=== PATIENT | male | born 1950 | race Caucasian/White ===

== ENCOUNTER 2019-04-21 08:14 | Emergency (ER) | payer OTHER, SELFPAY ==
--- NOTE | ~2019-04-21 | XR_ITS ---
XR foot RT min 3V DATE: 04/21/2019 08:56 INDICATION: Right third toe pain and bruising TECHNIQUE: 4 views COMPARISON: None FINDINGS: There is severe osteoarthritis with very prominent hypertrophic dorsal spurring at the firs t metatarsophalangeal joint. There is mild flattening of the head of the second metatarsal bone, chronic. There is posterior calcaneal enthesopathy. No fracture, dislocation, periosteal reaction or bone destruction is detected. IMPRESSION: Severe osteoarthritis with very prominent hypertrophic dorsal spurring at first metatarso phalangeal joint Calcaneal enthesopathy Reviewed, dictated and finalized at location A. 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
[2019-04-21 08:28] VITALS: BP 164/73; PULSE 76; RESP 18; TEMP 36.7; O2SAT 92
--- NOTE | 2019-04-21 08:38 | ED.LOWEXIN ---
HPI - Extremity Injury (Lower) General Chief Complaint: Extremity Injury, Lower Stated Complaint: Right toe pain Time Seen by Provider: 04/21/19 08:39 Source: patient Mode of arrival: ambulatory Limitations: no limitations History of Present Illness HPI Narrative: Stone Contreras is a 68 yo male with a PMH of diabetes, HTN, vitamin D deficiency, who comes to express care with third right toe discoloration. He states that he remember stubbing his toe, no pain or tenderness. Discoloration around nail going down toe proximally. States he does not have neuropathy. Was seen by primary care doctor on Tuesday, his A1c is 7.9. His feet were not checked at this visit but he says that his toe was okay on Tuesday Related Data Home Medications Medication Instructions Recorded Confirmed insulin lispro [Humalog Michel 10 unit SUBCUT TID 04/21/19 04/21/19 KwikPen U-100] Allergies Allergy/AdvReac Type Severity Reaction Status Date / Time No Known Allergies Allergy Verified 04/21/19 08:37 Review of Systems Review of Systems: Narrative: CONSTITUTIONAL: Denies fever, chills, sweats. EYES: Denies visual changes, redness, discharge. ENT: Denies rhinorrhea, congestion, sore throat, otalgia. CARDIOVASCULAR: Denies chest pain, palpitations, edema. RESPIRATORY: Denies dyspnea, wheezing, cough GASTROINTESTINAL: Denies abdominal pain, nausea, vomiting, diarrhea. GENITOURINARY: Denies dysuria, hematuria, abnormal discharge SKIN: Denies rash or itching. MUSCULOSKELETAL: Denies acute back pain; discoloration of third right toe NEUROLOGIC: Denies numbness, or focal weakness. PSYCHIATRIC: Denies anxiety or depression. [facility] [place] Past Medical History Medical History Vitamin D deficiency Wears hearing aid in both ears Family History Family History Father Family history of diabetes mellitus in first degree relative Diabetes mellitus Sibling Hypertension Family history of diabetes mellitus in first degree relative Mother Family history of diabetes mellitus in first degree relative Family history of heart disease in male family member before age 55 Social History Social History Smoking end date: 03/14/06 Alcohol intake: never Gender identity (if verbalized by the patient): Male Comments At time of signature, I agree with nursing past medical, surgical, social and family history. There is no relevant family history pertinent to the presenting complaint. Exam Narrative: Exam Narrative: GENERAL: This is a well-nourished, well-developed patient, in no apparent distress. HEAD: normocephalic, atraumatic. EYES: Sclera clear/white. Vision is grossly intact. EARS: External ears normal, . Hearing grossly intact. NOSE: External nose normal with no obvious nasal discharge, nares without redness, no rhinorrhea. THROAT: Mucous membranes moist, NECK: Neck supple, non-tender CARDIOVASCULAR: Regular rate and rhythm without murmurs, gallops, or rubs. RESPIRATORY: Clear to auscultation. Breath sounds equal bilaterally. No wheezes, rales, or rhonchi. GASTROINTESTINAL: Abdomen soft, SKIN: warm, intact with no suspicious lesions or rash, good texture and turgor. NEURO: awake, alert, and oriented to person, place and time. There were no obvious focal neurologic abnormalities. Steady gait EXTREMITIES: Normal range of motion. No edema. Right third toe discoloration, positive nail moving proximally, nontender, 2+ pedal pulse, patient has bunion at base of great toe on the right foot BACK: Nontender without deformity or crepitance. . Course Course Emergency Course: X-ray negative for fracture or pathology Vital Signs Vital signs: Vital Signs Temperature 98.0 F 04/21/19 08:28 Pulse Rate 76 04/21/19 08:28 Respiratory Rate 18 04/21/19 08:28 Blood Pressure 164/73 H 04/21/19 0
== END 2019-04-21 09:39 | disposition home or self-care (01) ==
PROVIDERS: Emergency Provider Nurse Practitioner; PCP Internal Medicine
DX: S90.111A Contusion of right great toe without damage to nail, initial encounter (principal); X58.XXXA Exposure to other specified factors, initial encounter; E55.9 Vitamin D deficiency, unspecified; I10 Essential (primary) hypertension; E11.40 Type 2 diabetes mellitus with diabetic neuropathy, unspecified
CPT/HCPCS: 73630; 99213; G0463

== ENCOUNTER 2019-05-10 08:00 | Outpatient (CLI) | payer OTHER, SELFPAY ==
--- NOTE | 2019-05-13 19:13 | WPDPFTINT ---
PFT Interpretation PFT Interpretation: DOS: 05/10/2019 REQUESTING: Dr. Briggs REASON FOR TESTING: COPD PULMONARY FUNCTION TESTS Results are reproducible. Spirometry: Extremely severe reduction in FEV1, 30% predicted. 0.9 L. Moderately severe reduction in FVC, 57%. Decreased FEV1% consistent with airflow obstruction. No bronchodilator was given. Lung volumes: Mild hyperinflation, TLC 124%. Slow vital capacity is much higher than forced vital capacity consistent with dynamic airflow obstruction. Severe air trapping. Severe increase in airway resistance, Raw 705%. Diffusion: DLCO mildly reduced 63%. Flow volume loop: Severe scooping of the expiratory limb. IMPRESSION: Severe obstructive ventilatory defect, mild hyperinflation, severe air trapping with dynamic airflow obstruction. Mild diffusion impairment. No bronchodilator was given. He meets criteria for cardiopulmonary rehabilitation and handicap parking permit based on FEV1 less than 1 L. Berenice Gastelum MD
== END 2019-05-10 08:01 | disposition home or self-care (01) ==
LOC: ANHPFT 08:01
PROVIDERS: PCP Internal Medicine; Visit Provider Internal Medicine
DX: J44.9 Chronic obstructive pulmonary disease, unspecified (principal); R94.2 Abnormal results of pulmonary function studies
CPT/HCPCS: 94375; 94726; 94729

== ENCOUNTER 2019-11-13 06:53 | Outpatient (CLI) | payer OTHER, SELFPAY ==
[2019-11-13 07:47] LABS: Basophils Absolute Auto 0.1 K/mm3 (0.0-0.1); Basophils Percent Auto 0.7 % (0.2-1.2); Eosinophils Absolute Auto 0.3 K/mm3 (0-0.3); Eosinophils Percent Auto 3.7 % (0-4.4); Hemoglobin 17.2 g/dL (14.0-18.0); Immature Granulocyte Absolute 0.02 K/mm3 (0.00-0.031); Immature Granulocyte Percent A 0.2 % (0-0.5); Lymphocytes Absolute Auto 1.87 K/mm3 (0.9-3.2); Lymphocytes Percent Auto 20.4 % (18.3-44.2); Mean Corpuscular HGB Conc 33.7 g/dl (32-36); Mean Corpuscular Hemoglobin 31.2 pg (26-34); Mean Corpuscular Volume 92.4 fl (80-100); Mean Platelet Volume 9.6 fl (7.4-10.4); Monocytes Percent Auto 11.3 % (2.6-8.5); Neutrophils Absolute Auto 5.8 K/mm3 (1.3-6.7); Neutrophils Percent Auto 63.7 % (45.5-73.1); Platelet Count Result 262 k/mm3 (150-375); Red Blood Count 5.52 M/mm3 (4.6-6.20); Red Cell Distribution Width 11.7 % (11.5-14.5); White Blood Count 9.2 K/mm3 (4.5-10.0)
[2019-11-13 07:52] LABS: Add Urine Microscopic? YES; Appearance Urine Clear (Clear); Bilirubin Urine Negative (Negative); Blood Urine Negative (Negative); Color Urine Yellow (Yellow); Glucose Urine UA 3+ mg/dL (Negative); Ketones Urine Negative (Negative); Leukocyte Esterase Ur Negative LEU/UL (NEGATIVE); Mucus Urine Rare /lpf; Nitrate Urine Negative (Negative); Protein Urine 2+ mg/dL (Negative); RBC Urine 0-2 /hpf (0-2); Specific Grav Ur 1.026 (1.001-1.035); Urobilinogen Urine Negative mg/dL (<2.0); WBC Urine 0-3 /hpf (0-3)
[2019-11-13 08:10] LABS: Alanine Aminotransferase 23 U/L (4-50); Albumin Level 4.4 g/dL (3.5-5.1); Alkaline Phosphatase 83 U/L (38-126); Anion Gap 6 mmol/L (8-16); Aspartate Amino Transferase 22 U/L (17-59); Bilirubin,Total 0.4 mg/dL (0.2-1.3); Blood Urea Nitrogen 15 mg/dL (9-20); Carbon Dioxide 33 mmol/L (22-30); Chloride 100 mmol/L (98-107); Cholesterol 121 mg/dL (0-200); Estimated Glomerular Filt Rate > 60; Glucose 135 mg/dL (75-110); HDL Direct 44 mg/dL; Potassium 4.4 mmol/L (3.4-5.0); Sodium 139 mmol/L (137-145); Triglycerides 107 mg/dL (<150)
[2019-11-13 08:21] LABS: LDL Cholesterol Direct 56 mg/dL
[2019-11-13 08:41] LABS: Prostate Specific Antigen 1.5 ng/mL (< OR = 4.0)
[2019-11-13 09:09] LABS: Hemoglobin A1C 6.3 % (<5.7)
[2019-11-16 10:43] LABS: Vitamin D 1,25 (OH)2 Total 44 pg/mL (18-72); Vitamin D2 1,25 (OH)2 <8 pg/mL; Vitamin D3 1,25 (OH)2 44 pg/mL
== END 2019-11-13 06:54 | disposition home or self-care (01) ==
PROVIDERS: PCP Internal Medicine; Visit Provider Internal Medicine
DX: E78.2 Mixed hyperlipidemia (principal); I10 Essential (primary) hypertension; E55.9 Vitamin D deficiency, unspecified; R79.9 Abnormal finding of blood chemistry, unspecified; E11.9 Type 2 diabetes mellitus without complications; Z79.4 Long term (current) use of insulin; Z79.899 Other long term (current) drug therapy; Z12.5 Encounter for screening for malignant neoplasm of prostate
CPT/HCPCS: 36415; 80053; 80061; 81001; 82542; 82652; 83036; 84153; 85025

== ENCOUNTER 2019-11-20 06:50 | Outpatient (CLI) | payer OTHER, SELFPAY ==
[2019-11-20 12:52] LABS: Total Volume 24 Hour Urine 2000 ml
[2019-11-20 13:21] LABS: Total Protein Urine 24 Hr 580 MG/DAY (28-141); Total Protein Urine Random 29 mg/dL
== END 2019-11-20 06:51 | disposition home or self-care (01) ==
PROVIDERS: PCP Internal Medicine; Visit Provider Internal Medicine
DX: R80.9 Proteinuria, unspecified (principal)
CPT/HCPCS: 81050; 84156

== ENCOUNTER 2019-12-25 06:38 | Outpatient (CLI) | payer OTHER, SELFPAY ==
[2019-12-25 07:36] LABS: Hemoglobin A1C 7.1 % (<5.7)
[2019-12-25 07:37] LABS: Anion Gap 5 mmol/L (8-16); Blood Urea Nitrogen 12 mg/dL (9-20); Calcium 9.2 mg/dL (8.4-10.2); Carbon Dioxide 38 mmol/L (22-30); Chloride 98 mmol/L (98-107); Cholesterol 104 mg/dL (0-200); Estimated Glomerular Filt Rate > 60; Glucose 68 mg/dL (75-110); HDL Direct 47 mg/dL; Potassium 3.9 mmol/L (3.4-5.0); Sodium 141 mmol/L (137-145); Triglycerides 66 mg/dL (<150)
[2019-12-25 07:48] LABS: LDL Cholesterol Direct 46 mg/dL
== END 2019-12-25 06:39 | disposition home or self-care (01) ==
PROVIDERS: PCP Internal Medicine; Visit Provider Internal Medicine
DX: E11.9 Type 2 diabetes mellitus without complications (principal); I10 Essential (primary) hypertension; Z79.899 Other long term (current) drug therapy; Z79.4 Long term (current) use of insulin
CPT/HCPCS: 36415; 80048; 80061; 83036; 84443

== ENCOUNTER 2020-01-29 06:36 | Outpatient (CLI) | payer OTHER, SELFPAY ==
--- NOTE | ~2020-01-29 | XR_ITS ---
XR hand RT min 3V DATE: 01/29/2020 06:55 INDICATION: Injured hand on a sharp object 2 months ago. Right hand pain. TECHNIQUE: 3 views COMPARISON: None FINDINGS: There is osteoarthritis at the third metacarpophalangeal and first interphalangeal joints p rimarily. No fracture or dislocation, periosteal reaction or bone destruction. IMPRESSION: No fracture or dislocation Osteoarthritis Reviewed, dictated and finalized at location D. 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
== END 2020-01-29 06:37 | disposition home or self-care (01) ==
PROVIDERS: PCP Internal Medicine; Visit Provider Internal Medicine
DX: M19.041 Primary osteoarthritis, right hand (principal)
CPT/HCPCS: 73130

== ENCOUNTER 2020-05-01 06:37 | Outpatient (CLI) | payer OTHER, SELFPAY ==
[2020-05-01 07:30] LABS: Hemoglobin A1C 7.6 % (<5.7)
[2020-05-01 07:31] LABS: Alanine Aminotransferase 27 U/L (4-50); Albumin Level 4.2 g/dL (3.5-5.1); Alkaline Phosphatase 75 U/L (38-126); Anion Gap 3 mmol/L (8-16); Aspartate Amino Transferase 25 U/L (17-59); Bilirubin,Total 0.5 mg/dL (0.2-1.3); Blood Urea Nitrogen 15 mg/dL (9-20); Carbon Dioxide 35 mmol/L (22-30); Chloride 103 mmol/L (98-107); Cholesterol 101 mg/dL (0-200); Estimated Glomerular Filt Rate > 60; Glucose 128 mg/dL (75-110); HDL Direct 44 mg/dL; Sodium 141 mmol/L (137-145); Triglycerides 69 mg/dL (<150)
[2020-05-01 07:42] LABS: LDL Cholesterol Direct 43 mg/dL
[2020-05-01 08:15] LABS: Vitamin D 25 Hydroxy 33.9 ng/mL
[2020-05-01 08:39] LABS: Folic Acid > 20.0 ng/mL (2.76->20)
== END 2020-05-01 06:38 | disposition home or self-care (01) ==
LOC: ANHLAB 06:40
PROVIDERS: PCP Internal Medicine; Visit Provider Internal Medicine
DX: E78.2 Mixed hyperlipidemia (principal); Z79.899 Other long term (current) drug therapy; E11.9 Type 2 diabetes mellitus without complications; I10 Essential (primary) hypertension; Z79.4 Long term (current) use of insulin; E55.9 Vitamin D deficiency, unspecified
CPT/HCPCS: 36415; 80053; 80061; 82306; 82607; 82746; 83036

== ENCOUNTER 2020-09-23 06:37 | Outpatient (CLI) | payer OTHER, SELFPAY ==
[2020-09-23 07:26] LABS: Basophils Percent Auto 0.3 % (0.2-1.2); Eosinophils Absolute Auto 0.3 K/mm3 (0-0.3); Eosinophils Percent Auto 3.1 % (0-4.4); Hematocrit 50.3 % (42.0-52.0); Hemoglobin 16.9 g/dL (14.0-18.0); Immature Granulocyte Absolute 0.01 K/mm3 (0.00-0.031); Immature Granulocyte Percent A 0.1 % (0-0.5); Lymphocytes Absolute Auto 1.98 K/mm3 (0.9-3.2); Mean Corpuscular HGB Conc 33.6 g/dl (32-36); Mean Corpuscular Hemoglobin 30.5 pg (26-34); Mean Corpuscular Volume 90.8 fl (80-100); Mean Platelet Volume 9.3 fl (7.4-10.4); Monocytes Absolute Auto 0.9 K/mm3 (0.1-0.6); Monocytes Percent Auto 9.9 % (2.6-8.5); Neutrophils Absolute Auto 5.8 K/mm3 (1.3-6.7); Neutrophils Percent Auto 64.6 % (45.5-73.1); Platelet Count Result 242 k/mm3 (150-375); Red Blood Count 5.54 M/mm3 (4.6-6.20); Red Cell Distribution Width 11.8 % (11.5-14.5)
[2020-09-23 08:15] LABS: Alanine Aminotransferase 27 U/L (4-50); Albumin Level 4.1 g/dL (3.5-5.1); Alkaline Phosphatase 66 U/L (38-126); Anion Gap 5 mmol/L (8-16); Aspartate Amino Transferase 28 U/L (17-59); Bilirubin,Total 0.4 mg/dL (0.2-1.3); Blood Urea Nitrogen 12 mg/dL (9-20); Calcium 9.1 mg/dL (8.4-10.2); Carbon Dioxide 35 mmol/L (22-30); Chloride 100 mmol/L (98-107); Estimated Glomerular Filt Rate > 60; Glucose 66 mg/dL (75-110); Potassium 3.5 mmol/L (3.4-5.0); Sodium 140 mmol/L (137-145)
[2020-09-23 08:16] LABS: Hemoglobin A1C 7.2 % (<5.7)
[2020-09-23 08:43] LABS: Prostate Specific Antigen 1.3 ng/mL (< OR = 4.0)
[2020-09-23 08:47] LABS: Creatinine Urine 49.4 mg/dL
[2020-09-23 08:52] LABS: MALB Creatinine Ratio 372.5 mg/g (0-30)
[2020-09-23 09:20] LABS: Folic Acid 15.6 ng/mL (2.76->20); Vitamin B12 > 1000.0 pg/mL (239-931)
[2020-09-23 09:43] LABS: Free T4 Free Thyroxine 1.03 ng/mL (0.78-2.19)
[2020-09-25 00:45] LABS: LDL Cholesterol Direct 44 mg/dL
[2020-09-25 01:16] LABS: Cholesterol 104 mg/dL (0-200); HDL Direct 37 mg/dL; Triglycerides 89 mg/dL (<150)
[2020-09-26 22:53] LABS: Vitamin D 1,25 (OH)2 Total 47 pg/mL (18-72); Vitamin D2 1,25 (OH)2 <8 pg/mL; Vitamin D3 1,25 (OH)2 47 pg/mL
== END 2020-09-23 06:38 | disposition home or self-care (01) ==
LOC: ANHLAB 06:40
PROVIDERS: PCP Internal Medicine; Visit Provider Internal Medicine
DX: E53.8 Deficiency of other specified B group vitamins (principal); E55.9 Vitamin D deficiency, unspecified; Z79.899 Other long term (current) drug therapy; Z12.5 Encounter for screening for malignant neoplasm of prostate; I10 Essential (primary) hypertension; E11.9 Type 2 diabetes mellitus without complications; Z79.4 Long term (current) use of insulin
CPT/HCPCS: 36415; 80053; 80061; 82043; 82607; 82652; 82746; 83036; 84153; 84439; 84443; 85025; G0103

== ENCOUNTER 2020-09-24 13:53 | Outpatient (CLI) | payer OTHER, SELFPAY ==
--- NOTE | 2020-09-24 14:02 | ECHO_ITS ---
Patient Info Name: Stone Contreras Age: 69 years : 1950 Gender: Male Ht: 70 in Wt: 206 lbs BSA: 2.17 m2 HR: 65 bpm BP: 102 / 96 mmHg Technical Quality: Good Exam Date: 09/24/2020 2:08 PM Exam Location: [facility] Patient Status: Outpatient Admit Date: 09/24/2020 Staff Ordering Physician: Pasquale Briggs MD Civil Defense Director: SYLVIE Attending Provider: Pasquale Briggs MD Referring Physician: Chester BAGLEY; Exam Type: CA echo doppler color flow Study Info Indications - ABN EKG Complete two-dimensional, color flow and Doppler transthoracic echocardiogram is performed. Summary 1. Complete two-dimensional, color flow and Doppler transthoracic echocardiogram is performed. 2. Left ventricular chamber dimension is normal. 3. Left ventricular systolic function is normal, estimated at 65-70%. 4. There is mildly increased left ventricular wall thickness. 5. The left ventricular diastolic function is grade I diastolic dysfunction. 6. E/e' 7 is not elevated. 7. No pulmonary hypertension, estimated pulmonary arterial systolic pressure is 19 mmHg. Left Ventricle E/e' 7 is not elevated. Left ventricular chamber dimension is normal. Left ventricular systolic function is normal, estimated at 65-70%. There is mildly increased left ventricular wall thickness. The left ventricular diastolic function is grade I diastolic dysfunction. Right Ventricle Right ventricular chamber dimension is normal. Right ventricular systolic function is normal. Left Atria Left atrial chamber dimension is normal. Right Atria Right atrial chamber dimension is normal. Aortic Valve The aortic valve is trileaflet. There is no aortic valve stenosis. There is no aortic valve regurgitation. Pulmonic Valve There is no pulmonic regurgitation. Mitral Valve There is no mitral valve stenosis. There is no mitral valve regurgitation. Tricuspid Valve There is no tricuspid valve regurgitation. No pulmonary hypertension, estimated pulmonary arterial systolic pressure is 19 mmHg. Pericardium/Pleural There is no pericardial effusion. Inferior Vena Cava Normal inferior vena cava with >50% collapse upon inspiration consistent with normal right atrial pressure, 5 mmHg. Aorta The aortic root size at the sinus of Valsalva is normal. Left Ventricular Outflow Tract Name Value Normal LVOT 2D LVOT Diameter 2.3 cm LVOT Doppler LVOT Peak Gradient 4 mmHg LVOT Mean Gradient 3 mmHg LVOT VTI 25 cm LVOT VTI/AV VTI Ratio 0.7 LVOT Stroke Volume 100 ml LVOT CO 17.8 l/min LVOT CI 8.2 l/min/m2 Pulmonic Valve Name Value Normal PV Doppler PV Peak Gradient
== END 2020-09-24 13:54 | disposition home or self-care (01) ==
PROVIDERS: PCP Internal Medicine; Visit Provider Internal Medicine
DX: R94.31 Abnormal electrocardiogram [ECG] [EKG] (principal)
CPT/HCPCS: 93306

== ENCOUNTER 2021-02-03 06:35 | Outpatient (CLI) | payer OTHER, SELFPAY ==
[2021-02-03 09:03] LABS: Anion Gap 5 mmol/L (8-16); Blood Urea Nitrogen 16 mg/dL (9-20); Carbon Dioxide 34 mmol/L (22-30); Chloride 99 mmol/L (98-107); Cholesterol 116 mg/dL (0-200); Estimated Glomerular Filt Rate > 60; Glucose 61 mg/dL (65-110); HDL Direct 50 mg/dL; Potassium 3.8 mmol/L (3.4-5.0); Sodium 138 mmol/L (137-145); Triglycerides 109 mg/dL (<150)
[2021-02-03 09:13] LABS: LDL Cholesterol Direct 48 mg/dL
[2021-02-03 09:53] LABS: Hemoglobin A1C 7.1 % (<5.7)
[2021-02-03 20:25] LABS: Vitamin D 25 Hydroxy 27.8 ng/mL
== END 2021-02-03 06:36 | disposition home or self-care (01) ==
LOC: ANHLAB 06:37
PROVIDERS: PCP Internal Medicine; Visit Provider Internal Medicine
DX: E78.2 Mixed hyperlipidemia (principal); Z51.81 Encounter for therapeutic drug level monitoring; Z79.899 Other long term (current) drug therapy; Z79.4 Long term (current) use of insulin; E55.9 Vitamin D deficiency, unspecified; I10 Essential (primary) hypertension
CPT/HCPCS: 36415; 80048; 80061; 82306; 83036

== ENCOUNTER 2021-06-23 06:31 | Outpatient (CLI) | payer OTHER, SELFPAY ==
[2021-06-23 07:35] LABS: Basophils Absolute Auto 0.1 K/mm3 (0.0-0.1); Basophils Percent Auto 0.6 % (0.2-1.2); Eosinophils Absolute Auto 0.3 K/mm3 (0-0.3); Eosinophils Percent Auto 3.1 % (0-4.4); Hematocrit 51.2 % (42.0-52.0); Hemoglobin 16.8 g/dL (14.0-18.0); Immature Granulocyte Absolute 0.02 K/mm3 (0.00-0.031); Immature Granulocyte Percent A 0.2 % (0-0.5); Lymphocytes Absolute Auto 1.82 K/mm3 (0.9-3.2); Mean Corpuscular HGB Conc 32.8 g/dl (32-36); Mean Corpuscular Hemoglobin 30.8 pg (26-34); Mean Corpuscular Volume 93.9 fl (80-100); Mean Platelet Volume 9.7 fl (7.4-10.4); Monocytes Absolute Auto 0.9 K/mm3 (0.1-0.6); Monocytes Percent Auto 8.9 % (2.6-8.5); Neutrophils Percent Auto 69.2 % (45.5-73.1); Platelet Count Result 255 k/mm3 (150-375); Red Blood Count 5.45 M/mm3 (4.6-6.20); Red Cell Distribution Width 11.9 % (11.5-14.5); White Blood Count 10.1 K/mm3 (4.5-10.0)
[2021-06-23 07:44] LABS: Hemoglobin A1C 6.7 % (<5.7)
[2021-06-23 07:47] LABS: Alanine Aminotransferase 24 U/L (4-50); Albumin Level 4.4 g/dL (3.5-5.1); Alkaline Phosphatase 64 U/L (38-126); Anion Gap 5 mmol/L (8-16); Aspartate Amino Transferase 25 U/L (17-59); Bilirubin,Total 0.5 mg/dL (0.2-1.3); Blood Urea Nitrogen 17 mg/dL (9-20); Calcium 8.5 mg/dL (8.4-10.2); Carbon Dioxide 33 mmol/L (22-30); Chloride 104 mmol/L (98-107); Cholesterol 134 mg/dL (0-200); Estimated Glomerular Filt Rate > 60; Glucose 88 mg/dL (65-110); HDL Direct 47 mg/dL; Potassium 3.8 mmol/L (3.4-5.0); Sodium 142 mmol/L (137-145); Triglycerides 111 mg/dL (<150)
[2021-06-23 07:57] LABS: LDL Cholesterol Direct 60 mg/dL
[2021-06-23 08:12] LABS: Creatinine Urine 222.9 mg/dL
[2021-06-23 08:29] LABS: Vitamin D 25 Hydroxy 27.1 ng/mL
[2021-06-23 08:53] LABS: Folic Acid 9.3 ng/mL (2.76->20)
[2021-06-23 09:33] LABS: Microalbumin Urine Random > 1140.0 mg/L (0-16.7)
== END 2021-06-23 06:32 | disposition home or self-care (01) ==
LOC: ANHLAB 06:33
PROVIDERS: PCP Internal Medicine; Visit Provider Internal Medicine
DX: E78.2 Mixed hyperlipidemia (principal); E11.9 Type 2 diabetes mellitus without complications; Z51.81 Encounter for therapeutic drug level monitoring; Z79.4 Long term (current) use of insulin; E53.8 Deficiency of other specified B group vitamins; E55.9 Vitamin D deficiency, unspecified
CPT/HCPCS: 36415; 80053; 80061; 82043; 82306; 82607; 82746; 83036; 85025

== ENCOUNTER → 2021-07-18 00:16 | Outpatient (CLI) | payer OTHER, SELFPAY ==
[2021-07-18 12:02] LABS: Influenza A QL RT-PCR Negative (Negative); Influenza B QL RT-PCR Negative (Negative); SARS-CoV-2 RNA PCR Negative
== END ==
PROVIDERS: PCP Internal Medicine; Visit Provider Internal Medicine
DX: R50.9 Fever, unspecified (principal); R05.9 Cough, unspecified; Z20.822 Contact with and (suspected) exposure to COVID-19
CPT/HCPCS: 87502; C9803; U0003; U0005

== ENCOUNTER 2021-07-19 10:58 | Inpatient (IN) | payer OTHER, MEDICARE, SELFPAY ==
[2021-07-19] VITALS (22 sets, daily range): BP systolic 144–173; BP diastolic 64–81; PULSE 62–88; RESP 16–100; TEMP 36.5–37.2; O2SAT 18–100; BMI 30.2
--- NOTE | ~2021-07-19 | XR_ITS ---
EXAMINATION: XR chest 2V DATE: 07/19/2021 11:59 INDICATION: Shortness of breath TECHNIQUE: Frontal and lateral views of the chest are obtained COMPARISON: 03/31/2009 FINDINGS: The lungs are free of acute opacities. There is no pleural effusion or pneumothorax. The ca rdiomediastinal silhouette is normal. There is moderate thoracic spondylosis. Calcified pulmonary nod ules are consistent with old granulomatous disease. IMPRESSION: 1. No acute cardiopulmonary abnormality. Reviewed, dictated and finalized at location A.
--- NOTE | ~2021-07-19 | US_ITS ---
US venous doppler [facility] DATE: 07/20/2021 15:25 INDICATION: Deep venous thrombosis TECHNIQUE: Real-time and color flow imaging and Doppler analysis of the veins of the lower extremitie s COMPARISON: None FINDINGS: The greater saphenous veins are patent. There is spontaneous and phasic flow and normal aug mentation and color flow signal and normal compression of the deep veins of both lower extremities. IMPRESSION: No evidence of deep venous thrombosis of either leg Reviewed, dictated and finalized at Location A. Reviewed, dictated and finalized at location B.
--- NOTE | 2021-07-19 11:07 | ECG_ITS ---
Measurements Intervals [place] Rate: 87 P: 75 [place]: 161 QRS: -55 QRSD: 96 T: 68 QT: 350 QTc: 421 Interpretive Statements SINUS RHYTHM LEFT AXIS DEVIATION CANNOT RULE OUT SEPTAL INFARCT, AGE INDETERMINATE CONSIDER INFERIOR INFARCT, AGE INDETERMINATE ABNORMAL ECG Electronically Signed On 07-20-2021 16:46:09 CDT by Familia Ramirez D.O.
[2021-07-19 11:35] LABS: Basophils Percent Auto 0.2 % (0.2-1.2); Eosinophils Absolute Auto 0.1 K/mm3 (0-0.3); Eosinophils Percent Auto 0.3 % (0-4.4); Hematocrit 46.8 % (42.0-52.0); Hemoglobin 15.9 g/dL (14.0-18.0); Immature Granulocyte Absolute 0.09 K/mm3 (0.00-0.031); Immature Granulocyte Percent A 0.5 % (0-0.5); Lymphocytes Absolute Auto 1.71 K/mm3 (0.9-3.2); Lymphocytes Percent Auto 9.9 % (18.3-44.2); Mean Corpuscular Hemoglobin 31.2 pg (26-34); Mean Corpuscular Volume 91.8 fl (80-100); Monocytes Absolute Auto 1.8 K/mm3 (0.1-0.6); Monocytes Percent Auto 10.2 % (2.6-8.5); Neutrophils Absolute Auto 13.6 K/mm3 (1.3-6.7); Neutrophils Percent Auto 78.9 % (45.5-73.1); Platelet Count Result 249 k/mm3 (150-375); Red Cell Distribution Width 11.6 % (11.5-14.5); White Blood Count 17.2 K/mm3 (4.5-10.0)
[2021-07-19 11:45] LABS: INR 1.1; Prothrombin Time 13.7 Seconds (11.1-14.7)
[2021-07-19 11:46] LABS: Partial Thromboplastin Time 31.6 SECONDS (22.3-36.8)
[2021-07-19 11:47] LABS: Alanine Aminotransferase 31 U/L (6-50); Albumin Level 4.1 g/dL (3.5-5.1); Alkaline Phosphatase 89 U/L (38-126); Anion Gap 6 mmol/L (8-16); Aspartate Amino Transferase 33 U/L (17-59); Bilirubin,Total 0.8 mg/dL (0.2-1.3); Blood Urea Nitrogen 14 mg/dL (9-20); Calcium 8.5 mg/dL (8.4-10.2); Carbon Dioxide 38 mmol/L (22-30); Chloride 86 mmol/L (98-107); Estimated CRCL calculation 78 ml/min; Estimated Glomerular Filt Rate > 60; Glucose 345 mg/dL (65-110); Potassium 3.6 mmol/L (3.4-5.0); Sodium 130 mmol/L (137-145)
[2021-07-19 11:48] LABS: Alveolar/Arterial O2 Gradient 54.6 mmHg; Base Excess ABG 5.1 mEq/l (+/-2.0); Carboxyhemoglobin 1.3 % THb (0-2.0); Fractional Inspired Oxygen 28 %; HCO3 ABG 33.2 mEq/l (22.0-26.0); Methemoglobin ABG 0.2 %THb (0-1.5); Oxygen Content ABG 19.7 %vol (16.0-22.0); Oxygen Saturation ABG 92.7 % (95.0-100.0); Oxyhemoglobin 91.7 % THb (90.0-100.0); PO2 ABG 70.3 mmHg (80.0-100.0); PO2 FiO2 Ratio Arterial Blood 2.51 %; Reduced Hemoglobin 6.8 %THb (0-5.0); Total Hemoglobin 15.3 g/dL (12.0-18.0); pH ABG 7.337 (7.350-7.450)
[2021-07-19 11:48] LABS: Lactic Acid Reflex 1.6 mmol/L (0.7-2.0)
[2021-07-19 11:50] LABS: Modified Allen's Test Pass; PCO2 ABG 63.3 mmHg (35.0-45.0); Site Drawn LEFT RADIAL
[2021-07-19 11:51] LABS: Device NASAL CANNULA
[2021-07-19] MEDS: methylPREDNISolone SOD SUCC 125 MG VIAL IV PUSH (12:13)
[2021-07-19] MEDS: ALBUTEROL SULFATE NEB 2.5 MG/0.5 ML INH 10 MG INHALATION (12:19)
[2021-07-19] MEDS: IPRATROPIUM BR 0.02% INH SOLN 0.5 MG/2.5 ML VIAL INHALATION ×2 (12:20→20:13)
--- NOTE | 2021-07-19 13:10 | ED.SOB ---
HPI - SOB/Dyspnea General Chief Complaint: Shortness of Breath/Dyspnea Stated Complaint: SOB Time Seen by Provider: 07/19/21 11:39 Source: patient Mode of arrival: ambulatory History of Present Illness HPI Narrative: 70-year-old male presents today with complaints of shortness of breath that started on Tuesday. Patient states that shortness of breath has gotten progressively worse. Patient tested for COVID and flu yesterday which is negative. Upon arrival patient's oxygen level was 78%. Patient put on 4 L nasal cannula and on assessment oxygen level was 94%. Patient currently with some tachypnea but no distress noted. Patient denies chest pain, fevers, body aches, nausea vomiting diarrhea, and sick contacts. Patient does endorse productive cough. Patient has a history of COPD only takes a daily inhaler at home. Related Data Home Medications Medication Instructions Recorded Confirmed omega-3 fatty acids 1,000 mg 1,200 mg PO BID 08/16/19 07/19/21 capsule acetaminophen 650 mg 650 mg PO Q12H 05/20/20 07/19/21 tablet,extended release mecobalamin (vitamin B12) 1,000 1,000 mcg SUBLINGUAL DAILY 05/20/20 07/19/21 mcg disintegrating tablet,sublingual atorvastatin [Lipitor] 40 mg PO HS 07/19/21 07/19/21 empagliflozin-metformin [Synjardy 5 - 1,000 tablet PO DAILY 07/19/21 07/19/21 XR] insulin glargine [Lantus Solostar 10 unit SUBCUT DAILY 07/19/21 07/19/21 U-100 Insulin] Allergies Allergy/AdvReac Type Severity Reaction Status Date / Time No Known Allergies Allergy Verified 07/19/21 11:23 Review of Systems Review of Systems: CONSTITUTIONAL: Denies fever, chills, or sweats. EYES: Denies visual changes, redness, or discharge. ENT: Denies rhinorrhea, congestion, sore throat, or otalgia. CARDIOVASCULAR: Denies chest pain, palpitations, or edema. RESPIRATORY: cough or dyspnea. GASTROINTESTINAL: Denies abdominal pain, nausea, vomiting, or diarrhea. GENITOURINARY: Denies dysuria or hematuria. SKIN: Denies rash or itching. MUSCULOSKELETAL: Denies back pain, joint pain, or myalgia. NEUROLOGIC: Denies headache, numbness, dizziness, or weakness. PSYCHIATRIC: Denies anxiety or depression. [facility] Past Medical History Medical History Abnormal EKG Abnormal finding of blood chemistry Benign essential hypertension BMI 28.0-28.9,adult BMI 29.0-29.9,adult COPD (chronic obstructive pulmonary disease) Cough Diplopia Encounter for preventive health examination Encounter for routine adult health examination without abnormal findings Encounter for special screening examination for neoplasm of prostate Fever Grade I diastolic dysfunction Hand pain, right Hearing loss Mixed hyperlipidemia Personal history of nicotine dependence Third nerve palsy Tobacco user Type 2 diabetes mellitus without complication, with long-term current use of insulin Umbilical hernia Vitamin B12 deficiency Vitamin D deficiency Wears hearing aid in both ears Family History Family History Father Family history of diabetes mellitus in first degree relative Diabetes mellitus Sibling Hypertension Family history of diabetes mellitus in first degree relative Mother Family history of diabetes mellitus in first degree relative Family history of heart disease in male family member before age 55 Other Lung cancer Social History Social History Smoking packs per day: 3.5 Smoking cigarettes per day: 70.0 Years smoked: 40 Smoking pack-years: 140.00 Smoking status: Former smoker Tobacco type: cigarettes Smoking end date: 03/14/06 Alcohol intake: current Drinks per week: 1 Substance use: never 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
[2021-07-19] MEDS: SODIUM CHLORIDE 0.9% IV 1,000 ML 999 ML IV CONT (13:24)
[2021-07-19 13:51] LABS: Alveolar/Arterial O2 Gradient 45.8 mmHg; Base Excess ABG 6.7 mEq/l (+/-2.0); Fractional Inspired Oxygen 28 %; HCO3 ABG 36.5 mEq/l (22.0-26.0); Oxygen Content ABG 19.9 %vol (16.0-22.0); Oxygen Saturation ABG 89.5 % (95.0-100.0); Oxyhemoglobin 89.9 % THb (90.0-100.0); PO2 ABG 64.4 mmHg (80.0-100.0); Total Hemoglobin 15.8 g/dL (12.0-18.0)
[2021-07-19 13:55] LABS: Device NASAL CANNULA; Modified Allen's Test Pass; PCO2 ABG 75.8 mmHg (35.0-45.0); Site Drawn LEFT RADIAL
--- NOTE | 2021-07-19 15:16 | PC.NURSE ---
patient placed on 3L oxygen for transport to room 212
--- NOTE | 2021-07-19 15:42 | PC.NURSE ---
This patient, Stone Contreras, was admitted to IMU Room 212-01. Patient/family oriented to hospital policies and general routines including ID bracelet, bed and alarms, visiting hours, pain management, procedures, bathroom and other care routines, personal items, smoking policy, room service/diet, and visiting hours. Information on how to activate the Rapid Response Team has been discussed. Patient/Family are encouraged to report perceived risks to care and to ask questions if they do not understand what they are told or what they should do.
[2021-07-19 16:43] LABS: Glucose Point of Care 279 mg/dl (65-105)
[2021-07-19 16:43] LABS: Glucose Point of Care 287 mg/dl (65-105)
--- NOTE | 2021-07-19 17:07 | PM.IMHP ---
H&P: HPI History of Present Illness Date/Time: Patient was placed observation status for expected length of stay less than 23 hours for management, will plan to re-evaluate tomorrow for improvement. 07/19/21 17:07 Chief Complaint: Shortness of breath Narrative: Mr. Contreras is a 70-year-old gentleman who presented to the emergency room with complaints of increasing shortness of breath since Tuesday. Patient states that he has a known history of COPD but does not wear any oxygen at home. Patient states he has been taking his trilogy inhaler without any difficulty. Patient states that 1st shortness of breath was only with exertion and then has progressively worsened to shortness of breath at rest. Patient states he has her himself wheezing multiple times. Patient states he does not have a rescue inhaler or nebulizer at home so was unable to see if this would be helpful. Patient denies being on any steroids recently. Patient denies any chest pain, lightheadedness, dizziness, syncopal, or near syncopal episodes. Patient denies any fever chills. Patient denies any dysuria, hematuria, frequency, or urgency. Patient has a known history of hypertension, COPD, grade 1 left ventricular diastolic dysfunction, dyslipidemia, and diabetes mellitus. Review of Systems Review of Systems: A 12 point review of systems was completed patient all pertinent positive and negative per HPI the remainder are unremarkable. [facility] Past Medical History Medical History Abnormal EKG Abnormal finding of blood chemistry Benign essential hypertension BMI 28.0-28.9,adult BMI 29.0-29.9,adult COPD (chronic obstructive pulmonary disease) Cough Diplopia Encounter for preventive health examination Encounter for routine adult health examination without abnormal findings Encounter for special screening examination for neoplasm of prostate Fever Grade I diastolic dysfunction Hand pain, right Hearing loss Mixed hyperlipidemia Personal history of nicotine dependence Third nerve palsy Tobacco user Type 2 diabetes mellitus without complication, with long-term current use of insulin Umbilical hernia Vitamin B12 deficiency Vitamin D deficiency Wears hearing aid in both ears Family History Family History Father Family history of diabetes mellitus in first degree relative Diabetes mellitus Sibling Hypertension Family history of diabetes mellitus in first degree relative Mother Family history of diabetes mellitus in first degree relative Family history of heart disease in male family member before age 55 Other Lung cancer Social History Social History Smoking packs per day: 3.5 Smoking cigarettes per day: 70.0 Years smoked: 40 Smoking pack-years: 140.00 Smoking status: Former smoker Tobacco type: cigarettes Smoking end date: 03/14/06 Alcohol intake: current Drinks per week: 1 Substance use: never 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 100 mcg-umeclid See Rx Instructions .ROUTE 03/18/21 07/19/21 Rx 62.5 mcg-vilant 25 mcg .COMPLEX #180 each inhalat.powder pen needle, diabetic 32 gauge x See Rx Instructions .ROUTE 04/05/21 07/19/21 Rx
[2021-07-19 17:27] LABS: Alveolar/Arterial O2 Gradient 198.8 mmHg; Base Excess ABG 2.3 mEq/l (+/-2.0); Fractional Inspired Oxygen 50 %; HCO3 ABG 32.2 mEq/l (22.0-26.0); Oxygen Content ABG 21.2 %vol (16.0-22.0); Oxygen Saturation ABG 92.5 % (95.0-100.0); Oxyhemoglobin 92.5 % THb (90.0-100.0); PO2 ABG 75.2 mmHg (80.0-100.0); Total Hemoglobin 16.3 g/dL (12.0-18.0)
[2021-07-19 17:30] LABS: Device NON-INVASIVE VENT; Modified Allen's Test Pass; Non-Invasive Expiratory Pressure 5 CMH2O; Non-Invasive Inspiratory Pressure 12 CMH2O; Non-Invasive Vent Rate 4 /MIN; PCO2 ABG 73.3 mmHg (35.0-45.0); Site Drawn RIGHT RADIAL
[2021-07-19] MEDS: INSULIN ASPART (*BKC) 100 UNITS/ML SUB-Q (17:34)
[2021-07-19] MEDS: INSULIN ASPART (*BKC) 100 UNITS/ML 10 UNITS SUB-Q (17:35)
[2021-07-19] MEDS: methylPREDNISolone SOD SUCC 125 MG VIAL 60 MG IV PUSH (17:36)
[2021-07-19 18:22] LABS: Appearance Urine Clear (Clear); Bilirubin Urine Negative (Negative); Blood Urine 2+ (Negative); Color Urine Yellow (Yellow); Glucose Urine UA 3+ mg/dL (Negative); Ketones Urine Negative (Negative); Leukocyte Esterase Ur Negative LEU/UL (NEGATIVE); Nitrate Urine Negative (Negative); Protein Urine 3+ mg/dL (Negative); Urobilinogen Urine 0.2 mg/dL (<2.0); pH Urine 6.5 (5.0-9.0)
[2021-07-19 18:28] LABS: RBC Urine 0-2 /hpf (0-2); WBC Urine 0-3 /hpf (0-3)
[2021-07-19 18:29] LABS: Add Urine Microscopic? YES
[2021-07-19 19:58] LABS: Glucose Point of Care 342 mg/dl (65-105)
[2021-07-19] MEDS: ALBUTEROL SULFATE NEB 2.5 MG/0.5 ML INH (20:13)
[2021-07-19 20:29] LABS: Alveolar/Arterial O2 Gradient 136.6 mmHg; Base Excess ABG 7.1 mEq/l (+/-2.0); Fractional Inspired Oxygen 50 %; HCO3 ABG 37.1 mEq/l (22.0-26.0); Oxygen Saturation ABG 98.2 % (95.0-100.0); Oxyhemoglobin 97.1 % THb (90.0-100.0); PO2 ABG 132.9 mmHg (80.0-100.0); PO2 FiO2 Ratio Arterial Blood 2.66 %
[2021-07-19 20:30] LABS: PCO2 ABG 77.3 mmHg (35.0-45.0); Site Drawn RIGHT RADIAL; pH ABG 7.299 (7.350-7.450)
[2021-07-19 20:31] LABS: Device BIPAP; Expiratory Pressure 8 cmH2O; Inspiratory Pressure 16 cmH2O; Modified Allen's Test Pass
[2021-07-19] MEDS: ACETAMINOPHEN 325 MG TABLET 650 MG PO (21:45)
[2021-07-19] MEDS: ATORVASTATIN 40 MG TABLET PO (21:46)
[2021-07-19] MEDS: MORPHINE SULFATE (*CRX) 2 MG/ML INJ 1 MG IV PUSH (21:46)
[2021-07-20] VITALS (24 sets, daily range): BP systolic 132–165; BP diastolic 47–76; PULSE 52–84; RESP 13–22; TEMP 36.4–37.2; O2SAT 93–99
[2021-07-20] MEDS: methylPREDNISolone SOD SUCC 125 MG VIAL 60 MG IV PUSH ×3 (00:16→16:39)
[2021-07-20] MEDS: IPRATROPIUM BR 0.02% INH SOLN 0.5 MG/2.5 ML VIAL INHALATION ×4 (01:11→21:30)
[2021-07-20] MEDS: ALBUTEROL SULFATE NEB 2.5 MG/0.5 ML INH (01:12)
[2021-07-20 05:47] LABS: Basophils Percent Auto 0.2 % (0.2-1.2); Hematocrit 46.9 % (42.0-52.0); Hemoglobin 15.1 g/dL (14.0-18.0); Immature Granulocyte Absolute 0.07 K/mm3 (0.00-0.031); Immature Granulocyte Percent A 0.7 % (0-0.5); Lymphocytes Absolute Auto 0.63 K/mm3 (0.9-3.2); Lymphocytes Percent Auto 6.6 % (18.3-44.2); Mean Corpuscular HGB Conc 32.2 g/dl (32-36); Mean Corpuscular Hemoglobin 30.7 pg (26-34); Mean Corpuscular Volume 95.3 fl (80-100); Mean Platelet Volume 9.9 fl (7.4-10.4); Monocytes Absolute Auto 0.2 K/mm3 (0.1-0.6); Monocytes Percent Auto 2.2 % (2.6-8.5); Neutrophils Absolute Auto 8.6 K/mm3 (1.3-6.7); Neutrophils Percent Auto 90.3 % (45.5-73.1); Platelet Count Result 249 k/mm3 (150-375); Red Blood Count 4.92 M/mm3 (4.6-6.20); Red Cell Distribution Width 11.7 % (11.5-14.5); White Blood Count 9.5 K/mm3 (4.5-10.0)
[2021-07-20 06:04] LABS: Anion Gap 5 mmol/L (8-16); Blood Urea Nitrogen 22 mg/dL (9-20); Calcium 8.4 mg/dL (8.4-10.2); Carbon Dioxide 36 mmol/L (22-30); Chloride 95 mmol/L (98-107); Estimated CRCL calculation 88 ml/min; Estimated Glomerular Filt Rate > 60; Glucose 330 mg/dL (65-110); Potassium 4.6 mmol/L (3.4-5.0); Sodium 136 mmol/L (137-145)
[2021-07-20 07:58] LABS: Glucose Point of Care 312 mg/dl (65-105)
[2021-07-20] MEDS: FLUTICASONE/UMECLIDIN/VILANTER 100-62.5-25 MCG ELLIPTA 1 PUFF INHALATION (08:28)
[2021-07-20] MEDS: ALBUTEROL SULFATE NEB 2.5 MG/3 ML INH INHALATION ×3 (08:29→21:30)
[2021-07-20 08:41] LABS: Alveolar/Arterial O2 Gradient 103.5 mmHg; Base Excess ABG 6.7 mEq/l (+/-2.0); Fractional Inspired Oxygen 35 %; HCO3 ABG 35.6 mEq/l (22.0-26.0); Oxygen Content ABG 20.1 %vol (16.0-22.0); Oxygen Saturation ABG 90.6 % (95.0-100.0); Oxyhemoglobin 91.7 % THb (90.0-100.0); PO2 ABG 65.3 mmHg (80.0-100.0); PO2 FiO2 Ratio Arterial Blood 1.87 %; Total Hemoglobin 15.6 g/dL (12.0-18.0); pH ABG 7.327 (7.350-7.450)
[2021-07-20 08:42] LABS: Device NON-INVASIVE VENT; Modified Allen's Test Pass; PCO2 ABG 69.5 mmHg (35.0-45.0); Site Drawn RIGHT RADIAL
[2021-07-20 08:43] LABS: Non-Invasive Expiratory Pressure 8 CMH2O; Non-Invasive Inspiratory Pressure 16 CMH2O; Non-Invasive Vent Rate 4 /MIN
[2021-07-20] MEDS: INSULIN ASPART (*BKC) 100 UNITS/ML 10 UNITS SUB-Q ×3 (09:30→16:40)
[2021-07-20] MEDS: CYANOCOBALAMIN 1,000 MCG TABLET 1000 MCG PO (09:30)
[2021-07-20] MEDS: VALSARTAN 160 MG TABLET 320 MG PO (09:30)
[2021-07-20] MEDS: ENOXAPARIN 40 MG/0.4 ML SYRINGE SUB-Q (09:30)
[2021-07-20] MEDS: OMEGA 3 POLYUNSAT FATTY ACIDS 1 GM CAP PO (09:30)
[2021-07-20] MEDS: ACETAMINOPHEN 325 MG TABLET 650 MG PO ×2 (09:30→21:11)
[2021-07-20] MEDS: INSULIN ASPART (*BKC) 100 UNITS/ML SUB-Q ×3 (09:30→16:40)
[2021-07-20] MEDS: INSULIN GLARGINE (*BKC) 100 UNITS/ML 10 UNITS SUB-Q (09:31)
--- NOTE | 2021-07-20 12:20 | PM.CNPUL ---
Assessment and Plan Assessment and plan (1) Acute respiratory failure with hypoxia and hypercapnia: Code(s): J96.01 - Acute respiratory failure with hypoxia; J96.02 - Acute respiratory failure with hypercapnia Status: Acute Assessment and Plan: 70-year-old man with history of advanced COPD presented with hypercapnic hypoxemic respiratory failure related to COPD exacerbation. Chest x-ray showed no evidence of active lung disease. The patient seems to be responded to current regimen consisting of a IV steroids, BiPAP support. I have decreased the dose of IV steroids and changed the BiPAP settings to 12/4 as he had evidence of lung hyperinflation on PE. Patient is scheduled to have a repeat blood gases in about 1 hour. On previous chest CT, there was evidence of old granulomatous disease with multiple small calcified nodules bilaterally. The patient has history of loud snoring with a respiratory pauses during sleep per . He will need a sleep study to exclude sleep disordered breathing. I would continue enoxaparin for DVT prophylaxis. I ordered venous study lower extremities to exclude DVT. Patient will need low-dose CT for lung cancer screening in the near future; he has been a smoker for many years. (2) Obesity (BMI 30-39.9): Code(s): E66.9 - Obesity, unspecified Status: Acute (3) COPD (chronic obstructive pulmonary disease): Qualifiers: COPD type: unspecified COPD Qualified Code(s): J44.9 - Chronic obstructive pulmonary disease, unspecified Code(s): J44.9 - Chronic obstructive pulmonary disease, unspecified Status: Acute (4) Tobacco user: Code(s): Z72.0 - Tobacco use Status: Acute History of Present Illness History of Present Illness Consult date: 07/20/21 Chief complaint: COPD Exacerbation Narrative: this 70-year-old man presented with a several day history of cough wheezing and progressively increasing shortness of breath. The patient has had history of COPD. Pulmonary function testing approximately 2 years ago showed severe COPD with FEV1 in the range of 0.9 L or 30% predicted. The patient has been on Trelegy inhaler daily. He was in his usual state of health until approximately 5 days ago when he started having cough mild wheezing and progressively increasing shortness of breath. when he presented to the emergency room yesterday you was found to have hypercapnic respiratory failure. The patient has been treated with IV steroids antibiotics as well as noninvasive ventilatory support via BiPAP for hypercapnic respiratory failure. Initial blood gases on 2 liters/minute showed pH of 7.33 pCO2 63 mmHg and PO2 of 70 mmHg. He has been on BiPAP 16/8 and 35% FiO2. On these settings the patient's respiratory status has somewhat improved. Upon questioning he denied having fever chills hemoptysis chest pain palpitations or lower extremity edema. Previous chest x-rays including a chest CT approximately 11 years ago showed multiple 3-4 mm pulmonary nodules bilaterally as well as calcified mediastinal and hilar lymphadenopathy consistent with old healed granulomatous disease. On admission chest CT there was no evidence of infiltrates. According to patient's , he has got loud snoring as well as respiratory pauses during sleep. Patient used to smoke 3 packs a day for many years. Recently he switched to cigars. He is also exposed to 2nd hand smoke at home. Review of Systems Review of Systems: All systems reviewed & are unremarkable except as noted in HPI and below PMFSH Past Medical History Medical History Abnormal EKG Abnormal finding of blood chemistry Benign essential hypertension BMI 28.0-28.9,adult BMI 29.0-29.9,adult COPD (chronic obstructive pulmonary disease) Cough Diplopia Encounter for preventive health examination Encounter for routine adult health examination without abnormal findings Encounter
[2021-07-20 12:24] LABS: Glucose Point of Care 321 mg/dl (65-105)
--- NOTE | 2021-07-20 13:21 | PM.IMPN ---
Progress Note: A&P Assessment and Plan (1) Acute respiratory failure with hypoxia and hypercapnia: Code(s): J96.01 - Acute respiratory failure with hypoxia; J96.02 - Acute respiratory failure with hypercapnia Status: Acute Assessment and Plan: Patient's initial ABG showed mild acidosis with hypercapnia and hypoxia. Patient was placed on O2 at 3 L per nasal cannula repeat ABG was done. Patient showed worsening acidosis with higher CO2 and lower O2 so patient was placed on BiPAP. Will repeat ABG and adjust BiPAP as needed. (2) COPD (chronic obstructive pulmonary disease): Qualifiers: COPD type: unspecified COPD Qualified Code(s): J44.9 - Chronic obstructive pulmonary disease, unspecified Code(s): J44.9 - Chronic obstructive pulmonary disease, unspecified Status: Acute Assessment and Plan: Monitor vital signs, I&Os, neuro status and patient is a fall risk Monitor serum electrolytes, cultures and CBC Monitor Oxygen saturation, Oxygen via NC; wean oxygen as tolerated, keep SpO2 greater than 88% Send sputum cultures if possible Duonebz q6H and Albuterol q2H prn Solu-Medrol 60 mg IVq12H BiPAP, defer management to Pulmonary Consulted Pulmonary for further management, appreciate assistance and recommendation--suggested obtain bilateral lower extremity Dopplers to rule out DVT (3) Type 2 diabetes mellitus without complication, with long-term current use of insulin: Code(s): E11.9 - Type 2 diabetes mellitus without complications; Z79.4 - [facility]DC (current) use of insulin Status: Acute Assessment and Plan: Will place patient on blood glucose monitoring before meals and at bedtime and have sliding scale insulin available. (4) Leukocytosis: Code(s): D72.829 - Elevated white blood cell count, unspecified Status: Acute Assessment and Plan: Etiology for leukocytosis not totally known. Patient's chest x-ray does not show any pneumonia. Patient has not recently been on any steroids. Will have a urinalysis performed, but patient is denying any symptoms. (5) Hyponatremia: Code(s): E87.1 - Hypo-osmolality and hyponatremia Status: Acute Assessment and Plan: Could be SIADH from patient's COPD exacerbation. Will trend daily sodium levels to ensure that sodium is going up. Subjective Date/time seen: 07/20/21 13:21 Patient is alert and oriented. BiPAP placed on and pending repeat ABG. Family and patient was updated on plan of care. Pulmonary was able to discuss follow-up and plan of care. Patient has a Medrol dose decreased to 60 mg q.12 hours. Continue DuoNebs. No acute events reported by RN during the night Review of Systems Review of Systems: All systems reviewed & are unremarkable except as noted in HPI and below Exam Narrative: Constitutional: Patient is well-nourished in no acute distress. Patient is alert and oriented x3 HEENT: Moist mucous membranes. No scleral icterus. No lymphadenopathy. Neck: No carotid bruits noted no JVD noted Lungs: Lung sounds are decreased auscultation bilaterally with expiratory wheeze noted. Cardiovascular: Apical pulse is regular rate and rhythm. S1-S2 noted, no S3 or S4 noted. No gallops, murmurs, or rubs noted. Abdomen: Soft, round, and nontender. No palpable masses. Extremities: No edema. Nontender. Skin: No rashes or lesions. Warm and dry. Skin is intact. Neurological: No focal neurological deficits. Cranial nerves II-XII grossly intact. Psychiatric: Cooperative, appropriate mood, and affect Objective Data Vital Signs Vital Signs: Vital Signs - 24 hr 07/19/21 13:47 07/19/21 14:25 07/19/21 14:55 Temperature Pulse Rate 81 75 81 Respiratory Rate 18 16 17 Blood Pressure 152/66 H 144/74 H Pulse Oximetry 96 100 94 07/19/21 15:35 07/19/21 16:00 07/19/21 17:55 Temperature 97.7 F Pulse Rate 81 75 87 Respiratory Rate 18 18 Blood Pressure 173/72 H Pulse Oximetry 97
[2021-07-20 13:32] LABS: Alveolar/Arterial O2 Gradient 114.5 mmHg; Base Excess ABG 6.4 mEq/l (+/-2.0); Fractional Inspired Oxygen 35 %; HCO3 ABG 34.1 mEq/l (22.0-26.0); Oxygen Content ABG 19.9 %vol (16.0-22.0); Oxygen Saturation ABG 91.1 % (95.0-100.0); Oxyhemoglobin 91.6 % THb (90.0-100.0); PO2 ABG 63.8 mmHg (80.0-100.0); PO2 FiO2 Ratio Arterial Blood 1.82 %; Total Hemoglobin 15.5 g/dL (12.0-18.0); pH ABG 7.363 (7.350-7.450)
[2021-07-20 13:33] LABS: Device BIPAP; Modified Allen's Test Pass; PCO2 ABG 61.3 mmHg (35.0-45.0); Site Drawn RIGHT RADIAL
[2021-07-20 13:34] LABS: Expiratory Pressure 4 cmH2O; Inspiratory Pressure 12 cmH2O
[2021-07-20 16:41] LABS: Glucose Point of Care 359 mg/dl (65-105)
[2021-07-20 20:31] LABS: Glucose Point of Care 407 mg/dl (65-105)
[2021-07-20] MEDS: ATORVASTATIN 40 MG TABLET PO (21:11)
[2021-07-20] MEDS: INSULIN ASPART (*BKC) 100 UNITS/ML 15 UNITS SUB-Q (21:11)
[2021-07-21] VITALS (24 sets, daily range): BP systolic 141–155; BP diastolic 49–66; PULSE 53–79; RESP 9–20; TEMP 36.4–37.1; O2SAT 92–99
[2021-07-21] MEDS: ALBUTEROL SULFATE NEB 2.5 MG/3 ML INH INHALATION ×4 (02:30→19:38)
[2021-07-21] MEDS: IPRATROPIUM BR 0.02% INH SOLN 0.5 MG/2.5 ML VIAL INHALATION ×4 (02:30→19:38)
[2021-07-21 04:59] LABS: Basophils Percent Auto 0.2 % (0.2-1.2); Hematocrit 44.5 % (42.0-52.0); Hemoglobin 14.4 g/dL (14.0-18.0); Immature Granulocyte Absolute 0.12 K/mm3 (0.00-0.031); Immature Granulocyte Percent A 0.7 % (0-0.5); Lymphocytes Absolute Auto 0.69 K/mm3 (0.9-3.2); Lymphocytes Percent Auto 3.9 % (18.3-44.2); Mean Corpuscular HGB Conc 32.4 g/dl (32-36); Mean Corpuscular Hemoglobin 30.3 pg (26-34); Mean Corpuscular Volume 93.5 fl (80-100); Mean Platelet Volume 9.4 fl (7.4-10.4); Monocytes Absolute Auto 0.9 K/mm3 (0.1-0.6); Monocytes Percent Auto 5.3 % (2.6-8.5); Neutrophils Percent Auto 89.9 % (45.5-73.1); Platelet Count Result 319 k/mm3 (150-375); Red Blood Count 4.76 M/mm3 (4.6-6.20); Red Cell Distribution Width 11.7 % (11.5-14.5); White Blood Count 17.8 K/mm3 (4.5-10.0)
[2021-07-21 05:10] LABS: Alanine Aminotransferase 40 U/L (6-50); Albumin Level 3.6 g/dL (3.5-5.1); Alkaline Phosphatase 71 U/L (38-126); Anion Gap 5 mmol/L (8-16); Aspartate Amino Transferase 34 U/L (17-59); Bilirubin,Total 0.4 mg/dL (0.2-1.3); Blood Urea Nitrogen 34 mg/dL (9-20); Calcium 8.2 mg/dL (8.4-10.2); Carbon Dioxide 38 mmol/L (22-30); Chloride 95 mmol/L (98-107); Estimated CRCL calculation 88 ml/min; Estimated Glomerular Filt Rate > 60; Glucose 280 mg/dL (65-110); Magnesium 2.4 mg/dL (1.6-2.3); Potassium 4.7 mmol/L (3.4-5.0); Sodium 138 mmol/L (137-145)
[2021-07-21] MEDS: methylPREDNISolone SOD SUCC 125 MG VIAL 60 MG IV PUSH ×2 (05:33→16:50)
[2021-07-21 08:02] LABS: Glucose Point of Care 298 mg/dl (65-105)
[2021-07-21] MEDS: ENOXAPARIN 40 MG/0.4 ML SYRINGE SUB-Q (08:22)
[2021-07-21] MEDS: VALSARTAN 160 MG TABLET 320 MG PO (08:22)
[2021-07-21] MEDS: INSULIN ASPART (*BKC) 100 UNITS/ML 10 UNITS SUB-Q ×3 (08:23→16:51)
[2021-07-21] MEDS: INSULIN ASPART (*BKC) 100 UNITS/ML SUB-Q ×3 (08:23→16:51)
[2021-07-21] MEDS: ACETAMINOPHEN 325 MG TABLET 650 MG PO ×2 (08:23→21:12)
[2021-07-21] MEDS: OMEGA 3 POLYUNSAT FATTY ACIDS 1 GM CAP PO (08:23)
[2021-07-21] MEDS: CYANOCOBALAMIN 1,000 MCG TABLET 1000 MCG PO (08:23)
[2021-07-21] MEDS: INSULIN GLARGINE (*BKC) 100 UNITS/ML 10 UNITS SUB-Q (08:23)
--- NOTE | 2021-07-21 08:44 | PM.PNPUL ---
Progress Note: A&P Assessment and Plan (1) Acute respiratory failure with hypoxia and hypercapnia: Code(s): J96.01 - Acute respiratory failure with hypoxia; J96.02 - Acute respiratory failure with hypercapnia Status: Acute Assessment and Plan: Respiratory status improving slowly. Patient has no other new respiratory symptoms. Venous study of lower extremities showed no evidence of DVT. Plan: Patient will continue with supplemental oxygen during the day and resume BiPAP support at night. Continue with current IV steroid dosage for today. Anticipate switching patient to oral steroids on 07/22. Await ABGs on supplemental oxygen. Out of bed to chair today. Patient will need sleep study as he may have sleep disordered breathing. 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 Remaining on BiPAP support at 12 /4 and supplemental oxygen. Had no shortness of breath when using the bathroom. Review of Systems Review of Systems: All systems reviewed & are unremarkable except as noted in HPI and below Exam Narrative: GENERAL APPEARANCE: Well developed, well nourished, alert and cooperative, and appears to be in mild respiratory distress while on BiPAP support and supplemental oxygen. SKIN: Inspection of the skin reveals no rashes, ulcerations or petechiae. HEENT: Sclerae anicteric and conjunctivae pink and moist. Extraocular movements were intact and pupils were equal, round, and reactive to light. NECK: Supple. There was no thyroid enlargement, and no tenderness, or masses were felt. LUNGS: Auscultation of the lungs revealed distant breath sounds, no wheezing CARDIAC: There was a regular rate and rhythm without any murmurs, gallops, rubs. ABDOMEN: Soft and nontender with normal bowel sounds. There was no organomegaly. LYMPH NODES: No lymphadenopathy was appreciated in the neck. EXTREMITIES: No cyanosis, clubbing or edema. NEUROLOGIC: Alert and oriented x 3. Normal affect. Objective Data Vital Signs Vital Signs: Vital Signs - 24 hr 07/20/21 10:00 07/20/21 12:00 07/20/21 13:00 Temperature 37.2 C Pulse Rate 62 67 78 Respiratory Rate 16 20 Blood Pressure 142/47 H Pulse Oximetry 94 93 07/20/21 13:22 07/20/21 13:32 07/20/21 14:00 Temperature Pulse Rate 80 81 83 Respiratory Rate 20 20 Blood Pressure Pulse Oximetry 07/20/21 16:00 07/20/21 18:00 07/20/21 20:00 Temperature 36.9 C 36.7 C Pulse Rate 81 84 67 Respiratory Rate 22 H 20 Blood Pressure 132/47 L 163/59 H Pulse Oximetry 95 95 07/20/21 21:30 07/20/21 21:40 07/20/21 22:00 Temperature Pulse Rate 62 65 59 L Respiratory Rate 19 21 H Blood Pressure Pulse Oximetry 96 07/20/21 23:53 07/21/21 00:00 07/21/21 02:00 Temperature 36.7 C Pulse Rate 68 54 L 54 L Respiratory Rate 20 20 Blood Pressure 154/76 H Pulse Oximetry 99 99 07/21/21 02:30 07/21/21 02:45 07/21/21 04:00 Temperature 36.4 C Pulse Rate 55 L 59 L 62 Respiratory Rate 14 9 L 18 Blood Pressure 141/66 H Pulse Oximetry 94 99 07/21/21 06:00 07/21/21 08:00 07/21/21 08:20 Temperature 36.8 C Pulse Rate 54 L 62 60 Respiratory Rate 18 18 Blood Pressure 146/53 H Pulse Oximetry 97 07/21/21 08:25 07/21/21 08:30 Temperature Pulse Rate 67 Respiratory Rate 18 Blood Pressure Pulse Oximetry 94 Intake/Outpu
[2021-07-21 10:17] LABS: Base Excess ABG 8.3 mEq/l (+/-2.0); Fractional Inspired Oxygen 32 %; Oxygen Content ABG 19.3 %vol (16.0-22.0); Oxygen Saturation ABG 89.1 % (95.0-100.0); Oxyhemoglobin 89.7 % THb (90.0-100.0); PO2 ABG 58.4 mmHg (80.0-100.0); PO2 FiO2 Ratio Arterial Blood 1.83 %; Total Hemoglobin 15.3 g/dL (12.0-18.0)
[2021-07-21 10:19] LABS: Device NASAL CANNULA; Modified Allen's Test Pass; PCO2 ABG 62.2 mmHg (35.0-45.0); Site Drawn RIGHT RADIAL
--- NOTE | 2021-07-21 11:09 | PM.IMPN ---
Progress Note: A&P Assessment and Plan (1) Acute respiratory failure with hypoxia and hypercapnia: Code(s): J96.01 - Acute respiratory failure with hypoxia; J96.02 - Acute respiratory failure with hypercapnia Status: Acute Assessment and Plan: Patient's initial ABG showed mild acidosis with hypercapnia and hypoxia. Patient was placed on O2 at 3 L per nasal cannula repeat ABG was done. Patient showed worsening acidosis with higher CO2 and lower O2 so patient was placed on BiPAP. ABG showed improvement (2) COPD (chronic obstructive pulmonary disease): Qualifiers: COPD type: unspecified COPD Qualified Code(s): J44.9 - Chronic obstructive pulmonary disease, unspecified Code(s): J44.9 - Chronic obstructive pulmonary disease, unspecified Status: Acute Assessment and Plan: Monitor vital signs, I&Os, neuro status and patient is a fall risk Monitor serum electrolytes, cultures and CBC Monitor Oxygen saturation, Oxygen via NC; wean oxygen as tolerated, keep SpO2 greater than 88% Send sputum cultures if possible Duonebz q6H and Albuterol q2H prn Solu-Medrol 60 mg IVq12H BiPAP, defer management to Pulmonary. Pulmonary discussed wearing BiPAP during the night and oxygen therapy during the day if needed. Patient's ABG this morning appeared to be stable. 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 Lantus 10 units daily (4) Leukocytosis: Code(s): D72.829 - Elevated white blood cell count, unspecified Status: Acute Assessment and Plan: Etiology for leukocytosis not totally known. Patient's chest x-ray does not show any pneumonia. Patient has not recently been on any steroids. Will have a urinalysis performed, but patient is denying any symptoms. (5) Hyponatremia: Code(s): E87.1 - Hypo-osmolality and hyponatremia Status: Acute Assessment and Plan: --resolving. Subjective Date/time seen: 07/21/21 11:09 Review of Systems Review of Systems: All systems reviewed & are unremarkable except as noted in HPI and below Exam Narrative: General: No acute distress. Mental Status: Awake, alert and oriented to person, place, and time with clear speech. Skin: Skin in warm, dry and intact without rashes or lesions. Head: Normocephalic and atraumatic. Eyes: Conjunctivae are clear without exudates or hemorrhage. Sclera is non-icteric. EOM are intact, PERRLA. Ears: The external ear and canal are non-tender and without swelling or discharge. Nose: Nasal mucosa is pink and moist. Septum midline. Nares patent bilaterally. Throat: Oral mucosa pink and moist with good dentition. Tongue midline. Neck: The neck supple without adenopathy. Trachea midline. No JVD. Cardiac: S1 and S2 regular rate and rhythm. No murmurs, gallops, or rubs auscultated. Respiratory: Chest wall symmetric, nontender and without deformity or trauma. Respirations even and unlabored. Lung sounds are bibasilar crackles with inspiratory and expiratory wheezes posterior to auscultation Abdominal: Abdomen soft, round and non-tender to palpation. Bowel sounds present and normoactive in all 4 quadrants. Spine: Neck and back with grossly normal curvature, no deformity in appearance or signs of trauma. Extremities: Upper and lower extremities atraumatic without tenderness or deformity. Full range of motion and muscle strength 5/5 to all extremities bilaterally. Neurological: Full and symmetric motor and light touch sensation bilaterally. Cranial n
[2021-07-21 12:33] LABS: Glucose Point of Care 388 mg/dl (65-105)
[2021-07-21 16:27] LABS: Glucose Point of Care 380 mg/dl (65-105)
[2021-07-21 20:26] LABS: Glucose Point of Care 360 mg/dl (65-105)
[2021-07-21] MEDS: ATORVASTATIN 40 MG TABLET PO (21:12)
[2021-07-22] VITALS (29 sets, daily range): BP systolic 160–188; BP diastolic 59–78; PULSE 46–95; RESP 16–20; TEMP 36–36.7; O2SAT 86–99
[2021-07-22] MEDS: ALBUTEROL SULFATE NEB 2.5 MG/3 ML INH INHALATION ×4 (01:05→20:13)
[2021-07-22] MEDS: IPRATROPIUM BR 0.02% INH SOLN 0.5 MG/2.5 ML VIAL INHALATION ×4 (01:06→20:13)
[2021-07-22 05:16] LABS: Basophils Percent Auto 0.1 % (0.2-1.2); Hematocrit 47.3 % (42.0-52.0); Hemoglobin 15.6 g/dL (14.0-18.0); Immature Granulocyte Absolute 0.09 K/mm3 (0.00-0.031); Immature Granulocyte Percent A 0.6 % (0-0.5); Lymphocytes Absolute Auto 0.85 K/mm3 (0.9-3.2); Lymphocytes Percent Auto 5.3 % (18.3-44.2); Mean Corpuscular Hemoglobin 30.6 pg (26-34); Mean Corpuscular Volume 92.7 fl (80-100); Mean Platelet Volume 9.4 fl (7.4-10.4); Monocytes Percent Auto 6.4 % (2.6-8.5); Neutrophils Percent Auto 87.6 % (45.5-73.1); Platelet Count Result 349 k/mm3 (150-375); Red Cell Distribution Width 11.6 % (11.5-14.5)
[2021-07-22] MEDS: methylPREDNISolone SOD SUCC 125 MG VIAL 60 MG IV PUSH (05:27)
[2021-07-22 05:33] LABS: Alanine Aminotransferase 45 U/L (6-50); Albumin Level 3.6 g/dL (3.5-5.1); Alkaline Phosphatase 73 U/L (38-126); Aspartate Amino Transferase 31 U/L (17-59); Bilirubin,Total 0.6 mg/dL (0.2-1.3); Blood Urea Nitrogen 30 mg/dL (9-20); Calcium 8.3 mg/dL (8.4-10.2); Carbon Dioxide > 40 mmol/L (22-30); Chloride 91 mmol/L (98-107); Estimated CRCL calculation 100 ml/min; Estimated Glomerular Filt Rate > 60; Glucose 292 mg/dL (65-110); Potassium 4.6 mmol/L (3.4-5.0); Sodium 136 mmol/L (137-145)
--- NOTE | 2021-07-22 08:13 | PM.PNPUL ---
Progress Note: A&P Assessment and Plan (1) Acute respiratory failure with hypoxia and hypercapnia: Code(s): J96.01 - Acute respiratory failure with hypoxia; J96.02 - Acute respiratory failure with hypercapnia Status: Acute Assessment and Plan: Respiratory status improved significantly. Patient presented with acute on chronic hypercapnic respiratory failure related to advanced COPD. Patient has also a history of loud snoring with respiratory pauses witnessed by his , which suggests sleep disordered breathing. Plan: Out of bed to chair today. anticipate discharging patient home tomorrow. The patient will need sleep study as outpatient. given his degree of hypercapnic hypoxemic respiratory failure he will be bridged with BiPAP support at home while waiting for sleep study. Apnea link tonight. He will be evaluated for home oxygen as well. Patient will continue with his Trelegy inhaler daily. I would also prescribe nebulized albuterol for p.r.n. use at home as well as a rescue albuterol inhaler. He will continue with prednisone 40 mg daily with instructions to taper it off over the next 2 weeks. He needs to return to pulmonary clinic for follow-up in approximately 3 weeks. 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 Slept well last night on BiPAP support. Out of bed on nasal cannula this a.m.. Willing to go home. Review of Systems Review of Systems: All systems reviewed & are unremarkable except as noted in HPI and below Exam Narrative: GENERAL APPEARANCE: Well developed, well nourished, alert and cooperative, and appears to be in no respiratory distress while on supplemental oxygen. SKIN: Inspection of the skin reveals no rashes, ulcerations or petechiae. HEENT: Sclerae anicteric and conjunctivae pink and moist. Extraocular movements were intact and pupils were equal, round, and reactive to light. NECK: Supple. There was no thyroid enlargement, and no tenderness, or masses were felt. LUNGS: Auscultation of the lungs revealed distant breath sounds, no wheezing CARDIAC: There was a regular rate and rhythm without any murmurs, gallops, rubs. ABDOMEN: Soft and nontender with normal bowel sounds. There was no organomegaly. LYMPH NODES: No lymphadenopathy was appreciated in the neck. EXTREMITIES: No cyanosis, clubbing or edema. NEUROLOGIC: Alert and oriented x 3. Normal affect. Objective Data Vital Signs Vital Signs: Vital Signs - 24 hr 07/21/21 08:20 07/21/21 08:25 07/21/21 08:30 Temperature Pulse Rate 60 67 Respiratory Rate 18 18 Blood Pressure Pulse Oximetry 94 07/21/21 10:00 07/21/21 12:00 07/21/21 14:00 Temperature 36.9 C Pulse Rate 63 70 61 Respiratory Rate 19 Blood Pressure 153/53 H Pulse Oximetry 94 07/21/21 14:42 07/21/21 14:51 07/21/21 16:00 Temperature 37.1 C Pulse Rate 64 62 76 Respiratory Rate 18 18 20 Blood Pressure 153/49 H Pulse Oximetry 94 07/21/21 18:00 07/21/21 19:18 07/21/21 19:44 Temperature 37.0 C Pulse Rate 67 65 59 L Respiratory Rate 13 18 Blood Pressure 155/65 H Pulse Oximetry 92 07/21/21 19:45 07/21/21 19:56 07/21/21 20:00 Temperature Pulse Rate 61 65 Respiratory Rate 18 18 Blood Pressure Pulse Oximet
[2021-07-22 08:19] LABS: Glucose Point of Care 311 mg/dl (65-105)
[2021-07-22] MEDS: OMEGA 3 POLYUNSAT FATTY ACIDS 1 GM CAP PO (08:19)
[2021-07-22] MEDS: VALSARTAN 160 MG TABLET 320 MG PO (08:19)
[2021-07-22] MEDS: CYANOCOBALAMIN 1,000 MCG TABLET 1000 MCG PO (08:19)
[2021-07-22] MEDS: ENOXAPARIN 40 MG/0.4 ML SYRINGE SUB-Q (08:19)
[2021-07-22] MEDS: ACETAMINOPHEN 325 MG TABLET 650 MG PO ×2 (08:19→20:52)
[2021-07-22] MEDS: INSULIN GLARGINE (*BKC) 100 UNITS/ML 10 UNITS SUB-Q (08:20)
[2021-07-22] MEDS: INSULIN ASPART (*BKC) 100 UNITS/ML SUB-Q ×3 (08:20→16:44)
[2021-07-22] MEDS: INSULIN ASPART (*BKC) 100 UNITS/ML 10 UNITS SUB-Q ×4 (08:20→16:44)
--- NOTE | 2021-07-22 10:38 | HOMEO2EVAL ---
Evaluation was performed at [facility] Home Oxygen Evaluation RC: Home Oxygen (O2) Evaluation Start: 07/22/21 08:10 Freq: ONCE Status: Active Protocol: RPE Activity Type Activity Date Activity User E-Sign Co-Sign Detail Recorded Client Recorded Date Recorded By Document 07/22/21 10:00 KMV [email or web address] 07/22/21 10:38 KMV Document 07/22/21 10:02 KMV [email or web address] 07/22/21 10:38 KMV Document 07/22/21 10:05 KMV [email or web address] 07/22/21 10:38 KMV Document 07/22/21 10:07 KMV [email or web address] 07/22/21 10:38 KMV Document 07/22/21 10:15 KMV [email or web address] 07/22/21 10:38 KMV 07/22/21 07/22/21 07/22/21 10:00 10:02 10:05 Home O2 Evaluation Test Phase Resting Resting Exercise Oxygen Delivery Room Air Nasal Cannula Nasal Cannula Oxygen Flow Rate (L/min) 1 1 Pulse Oximetry (90-100 %) 86 L 92 87 L Pulse Rate (60-100 beats/min) 82 81 95 Ambulation Distance (feet) Ambulation Distance (meters) Home Oxygen Evaluation Comments Treatment Charges O2 Evaluation - Inpatient 07/22/21 07/22/21 10:07 10:15 Home O2 Evaluation Test Phase Exercise Resting Oxygen Delivery Nasal Cannula Nasal Cannula Oxygen Flow Rate (L/min) 2 1 Pulse Oximetry (90-100 %) 91 93 Pulse Rate (60-100 beats/min) 94 86 Ambulation Distance (feet) 400 Ambulation Distance (meters) 121.91 Home Oxygen Evaluation Comments PT REQUIRES 1 L AT REST AND 2 L WITH ACTIVITY Treatment Charges
--- NOTE | 2021-07-22 10:38 | PCRCNOTE ---
PT REQUIRES 1 L AT REST AND 2 L WITH ACTIVITY. SETTING UP WITH [facility] PER PT REQUEST. RN NOTIFIED. AWAITING DELIVERY OF TRANSPORT TANK FOR D/C HOME. FAXING ALL REQUIRED DOCUMENTATION.
[2021-07-22 11:59] LABS: Glucose Point of Care 431 mg/dl (65-105)
[2021-07-22] MEDS: SODIUM CHLORIDE 0.9% IV 250 ML 100 ML IV CONT (13:04)
[2021-07-22 17:00] LABS: Glucose Point of Care 270 mg/dl (65-105)
[2021-07-22] MEDS: SODIUM CHLORIDE 0.9% IV 1,000 ML 100 ML IV CONT (18:09)
[2021-07-22 19:46] LABS: Glucose Point of Care 302 mg/dl (65-105)
[2021-07-22] MEDS: ATORVASTATIN 40 MG TABLET PO (20:52)
--- NOTE | 2021-07-22 21:20 | PM.IMPN ---
Progress Note: A&P Assessment and Plan (1) Acute respiratory failure with hypoxia and hypercapnia: Code(s): J96.01 - Acute respiratory failure with hypoxia; J96.02 - Acute respiratory failure with hypercapnia Status: Acute Assessment and Plan: Patient on 3 L nasal cannula currently with good oxygen saturations in the 90s. Pulmonology is following (plan as below.) Home O2 assessment performed today 1 L required at rest and 2 L required with activity. (2) COPD (chronic obstructive pulmonary disease): Qualifiers: COPD type: unspecified COPD Qualified Code(s): J44.9 - Chronic obstructive pulmonary disease, unspecified Code(s): J44.9 - Chronic obstructive pulmonary disease, unspecified Status: Acute Assessment and Plan: Pulmonology was consulted and have placed the patient on BiPAP at night, with recommendation for outpatient sleep study upon discharge. They currently assessed patient is stable enough for discharge tomorrow. And will continue with a p.o. prednisone steroid taper for 2 weeks, with follow-up at their office in 3 weeks. Continue nebulizer therapy ApneaLink tonight Outpatient follow-up as above Continue to monitor vital signs and O2 saturations Continue with BiPAP as above at night. 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 Patient's blood sugars have been in the high 300s to 400s since admission. He was initially placed on a low dose sliding scale insulin with Lantus 10 units daily, and fast acting insulin 10 units t.i.d. with meals. He was additionally placed on low-dose sliding scale insulin. Of note, patient has been on IV methylprednisolone from the time of admission, which likely accounts for some of his hyperglycemia. One time 250 mL fluid bolus and additional 10 units of insulin aspart were given in addition to the above regimen. Adjusted patient's sliding scale insulin to high dose from low-dose given his steroid therapy. Next preprandial glucose improved in the 200s Increase Lantus to 12 units in the a.m. Gentle IV fluid resuscitation, patient is mildly currently with BUN at 30. (4) Leukocytosis: Code(s): D72.829 - Elevated white blood cell count, unspecified Status: Acute Assessment and Plan: WBC 16 today, improved from yesterday. Patient remains afebrile. Patient's chest x-ray does not show any pneumonia. Patient has been on IV steroids for the duration of his stay. This is likely etiology of his leukocytosis. Trend leukocytosis. Consider blood cultures if no improvement. (5) Hyponatremia: Code(s): E87.1 - Hypo-osmolality and hyponatremia Status: Acute Assessment and Plan: Sodium 136 today Patient will receive gentle IV fluid resuscitation today to treat his hyperglycemia Continue to trend sodium. Salt tabs if needed. Time Spent With Patient Time with patient: Greater than 35 minutes Subjective Date/time seen: 07/22/21 21:20 70-year-old male with past medical history of diabetes, hypertension, and COPD who presented to us for shortness of breath. Mr. Contreras is doing very well today, and he denies current shortness of breath, chest pain, lower extremity swelling, abdominal pain. We discussed extensively his plan for discharge, and along with follow-up to pulmonology, and plans for sleep study. We also discussed in great length his diabetic management. Review of Systems Review of Systems: All systems reviewed & are unremarkable except as noted in HPI and below Exam Narrative: GENERAL APPEARANCE: Alert and oriented x 3, in no apparent distress. HEENT: PERRL, EOMI. Sclerae anicteric. Moist mucous membranes.
[2021-07-23] VITALS (11 sets, daily range): BP systolic 175–189; BP diastolic 68–78; PULSE 47–75; RESP 18–20; TEMP 36.5–36.7; O2SAT 95–99
--- NOTE | 2021-07-23 02:26 | PCRCNOTE ---
0200 UPD treatment not given due to pt being on sleep study. Next available administration at 0800.
[2021-07-23] MEDS: SODIUM CHLORIDE 0.9% IV 1,000 ML 100 ML IV CONT (04:45)
[2021-07-23 06:22] LABS: Basophils Percent Auto 0.2 % (0.2-1.2); Eosinophils Absolute Auto 0.1 K/mm3 (0-0.3); Eosinophils Percent Auto 0.3 % (0-4.4); Hematocrit 47.7 % (42.0-52.0); Hemoglobin 15.4 g/dL (14.0-18.0); Immature Granulocyte Absolute 0.15 K/mm3 (0.00-0.031); Immature Granulocyte Percent A 0.9 % (0-0.5); Lymphocytes Absolute Auto 1.86 K/mm3 (0.9-3.2); Lymphocytes Percent Auto 10.7 % (18.3-44.2); Mean Corpuscular HGB Conc 32.3 g/dl (32-36); Mean Corpuscular Hemoglobin 30.3 pg (26-34); Mean Corpuscular Volume 93.7 fl (80-100); Mean Platelet Volume 9.2 fl (7.4-10.4); Monocytes Absolute Auto 1.9 K/mm3 (0.1-0.6); Monocytes Percent Auto 10.9 % (2.6-8.5); Neutrophils Absolute Auto 13.3 K/mm3 (1.3-6.7); Platelet Count Result 343 k/mm3 (150-375); Red Blood Count 5.09 M/mm3 (4.6-6.20); Red Cell Distribution Width 11.7 % (11.5-14.5); White Blood Count 17.3 K/mm3 (4.5-10.0)
[2021-07-23 06:34] LABS: Alanine Aminotransferase 50 U/L (6-50); Albumin Level 3.4 g/dL (3.5-5.1); Alkaline Phosphatase 70 U/L (38-126); Aspartate Amino Transferase 38 U/L (17-59); Bilirubin,Total 0.7 mg/dL (0.2-1.3); Blood Urea Nitrogen 22 mg/dL (9-20); Calcium 8.2 mg/dL (8.4-10.2); Carbon Dioxide > 40 mmol/L (22-30); Chloride 93 mmol/L (98-107); Estimated CRCL calculation 88 ml/min; Estimated Glomerular Filt Rate > 60; Glucose 191 mg/dL (65-110); Potassium 3.8 mmol/L (3.4-5.0); Sodium 138 mmol/L (137-145)
[2021-07-23 08:21] LABS: Glucose Point of Care 202 mg/dl (65-105)
[2021-07-23] MEDS: INSULIN ASPART (*BKC) 100 UNITS/ML SUB-Q ×2 (08:23→12:27)
[2021-07-23] MEDS: ENOXAPARIN 40 MG/0.4 ML SYRINGE SUB-Q (08:23)
[2021-07-23] MEDS: predniSONE 20 MG TABLET 40 MG PO (08:23)
[2021-07-23] MEDS: CYANOCOBALAMIN 1,000 MCG TABLET 1000 MCG PO (08:23)
[2021-07-23] MEDS: VALSARTAN 160 MG TABLET 320 MG PO (08:23)
[2021-07-23] MEDS: OMEGA 3 POLYUNSAT FATTY ACIDS 1 GM CAP PO (08:23)
[2021-07-23] MEDS: INSULIN ASPART (*BKC) 100 UNITS/ML 10 UNITS SUB-Q ×2 (08:23→12:27)
[2021-07-23] MEDS: ACETAMINOPHEN 325 MG TABLET 650 MG PO (08:26)
[2021-07-23] MEDS: INSULIN GLARGINE (*BKC) 100 UNITS/ML 12 UNITS SUB-Q (08:26)
[2021-07-23] MEDS: IPRATROPIUM BR 0.02% INH SOLN 0.5 MG/2.5 ML VIAL INHALATION ×2 (08:34→14:06)
[2021-07-23] MEDS: ALBUTEROL SULFATE NEB 2.5 MG/3 ML INH INHALATION ×2 (08:34→14:06)
--- NOTE | 2021-07-23 08:55 | PM.PNPUL ---
Progress Note: A&P Assessment and Plan (1) Acute respiratory failure with hypoxia and hypercapnia: Code(s): J96.01 - Acute respiratory failure with hypoxia; J96.02 - Acute respiratory failure with hypercapnia Status: Acute Assessment and Plan: Respiratory status improved significantly. Patient presented with acute on chronic hypercapnic respiratory failure related to advanced COPD. Patient has also a history of loud snoring with respiratory pauses witnessed by his , which suggests sleep disordered breathing. Apnea link study last night showed significant oxyhemoglobin desaturation while patient was on supplemental oxygen 2 liters/minute. In particular the AHI was 9.6 and with saturation time <88% was 62% of the entire study time or a total of 205 min. Plan: OK to discharge patient home today. The patient will need to continue with supplemental oxygen 3 liters/minute at night, and 2 liters/minute during the day. In addition he will be on BiPAP support 02/18 at night, while waiting for sleep study. He will continue with his Trelegy inhaler once daily, short-acting bronchodilators for p.r.n. use, and prednisone regimen starting at 35 mg daily with tapering off over the next 2-3 weeks. Patient should be scheduled for night split study. He needs to return to pulmonary clinic for follow-up in approximately 3 weeks. (2) COPD (chronic obstructive pulmonary disease): Qualifiers: COPD type: unspecified COPD Qualified Code(s): J44.9 - Chronic obstructive pulmonary disease, unspecified Code(s): J44.9 - Chronic obstructive pulmonary disease, unspecified Status: Acute (3) Type 2 diabetes mellitus without complication, with long-term current use of insulin: Code(s): E11.9 - Type 2 diabetes mellitus without complications; Z79.4 - intermediate (current) use of insulin Status: Acute (4) Tobacco user: Code(s): Z72.0 - Tobacco use Status: Acute (5) Hypersomnia: Code(s): G47.10 - Hypersomnia, unspecified Status: Acute Subjective Date/time seen: 07/23/21 08:55 Patient doing better. Eager to go home. Underwent an ApneaLink study last night on just supplemental oxygen 2 liters/minute. Underwent home oxygen evaluation yesterday. Review of Systems Review of Systems: All systems reviewed & are unremarkable except as noted in HPI and below Exam Narrative: GENERAL APPEARANCE: Well developed, well nourished, alert and cooperative, and appears to be in no respiratory distress while on supplemental oxygen. SKIN: Inspection of the skin reveals no rashes, ulcerations or petechiae. HEENT: Sclerae anicteric and conjunctivae pink and moist. Extraocular movements were intact and pupils were equal, round, and reactive to light. NECK: Supple. There was no thyroid enlargement, and no tenderness, or masses were felt. LUNGS: Auscultation of the lungs revealed distant breath sounds, no wheezing CARDIAC: There was a regular rate and rhythm without any murmurs, gallops, rubs. ABDOMEN: Soft and nontender with normal bowel sounds. There was no organomegaly. LYMPH NODES: No lymphadenopathy was appreciated in the neck. EXTREMITIES: No cyanosis, clubbing or edema. NEUROLOGIC: Alert and oriented x 3. Normal affect. Objective Data Vital Signs Vital Signs: Vital Signs - 24 hr 07/22/21 10:00 07/22/21 10:02 07/22/21 10:05 Temperature Pulse Rate 82 81 95 Respiratory Rate Blood Pressure Pulse Oximetry 86 L 92 87 L 07/22/21 10:07 07/22/21 10:15 07/22/21 12:00 Temperature 36.4 C Pulse Rate 94 86 63 Respiratory Rate 20 Blood Pressure 173/59 H Pulse Oximetry 91 93 93 07/22/21 14:00 07/22/21 14:50 07/22/21 14:58 Temperature Pulse Rate 61 62 62 Respiratory Rate 16 16 Blood Pressure Pulse Oximetry 07/22/21 15:32 07/22/21 16:00 07/22/21 18:00 Temperature 36.4 C Pulse Rate 60 61 62 Respiratory Rate 16 18 Blood Pressure 176/68 H
--- NOTE | 2021-07-23 10:10 | PM.DS ---
DS: Admitting Diagnosis Discharge Date 07/23/2021 1300 Admitting Diagnosis Shortness of breath DS: Discharge Diagnosis Discharge Diagnosis (1) Acute respiratory failure with hypoxia and hypercapnia: Code(s): J96.01 - Acute respiratory failure with hypoxia; J96.02 - Acute respiratory failure with hypercapnia Status: Acute Assessment and Plan: Patient on 3 L nasal cannula currently with good oxygen saturations in the 90s. Pulmonology is following (plan as below.) Home O2 assessment performed today 1 L required at rest and 2 L required with activity, however, pulmonology disagreed with this given apnea link findings of AHI of 9.6 and with saturation time less than 80% 62% of the entire study time or total of 205 minutes. Will discharge patient with 2 L supplemental O2 during the day, and 3 L at night along with BiPAP machine. Outpatient sleep study (2) COPD (chronic obstructive pulmonary disease): Qualifiers: COPD type: unspecified COPD Qualified Code(s): J44.9 - Chronic obstructive pulmonary disease, unspecified Code(s): J44.9 - Chronic obstructive pulmonary disease, unspecified Status: Acute Assessment and Plan: Pulmonology was consulted and have placed the patient on BiPAP at night, with recommendation for outpatient sleep study upon discharge. They currently assessed patient is stable enough for discharge tomorrow. And will continue with a p.o. prednisone steroid taper for 2 weeks, with follow-up at their office in 3 weeks. Continue nebulizer therapy Outpatient follow-up as above Check your oxygen and blood pressures at home as needed Continue with BiPAP as above at night until you complete your sleep study. (3) Type 2 diabetes mellitus without complication, with long-term current use of insulin: Code(s): E11.9 - Type 2 diabetes mellitus without complications; Z79.4 - detention (current) use of insulin Status: Acute Assessment and Plan: Patient's blood glucose 191 today after increasing Lantus to 12 units in the a.m., 250 mL bolus, and gentle IV fluid resuscitation overnight. We also adjusted to high-dose sliding scale insulin. Patient has been on IV methylprednisolone from the time of admission, which likely accounts for some of his hyperglycemia, and will be discharged on a prednisone taper. Discharge with 12 units Lantus daily, resume home insulin lispro. Continue to monitor blood sugars in the morning and before meals, keeping a log to bring to primary care. Follow-up with primary care after discontinuation of prednisone Advised return precautions, went to contact physician. (4) Leukocytosis: Code(s): D72.829 - Elevated white blood cell count, unspecified Status: Acute Assessment and Plan: Patient has been on IV steroids for the duration of his stay. Patient remains afebrile. Patient's chest x-ray does not show any pneumonia. This is likely etiology of his leukocytosis. Provided with return precautions Follow-up CBC with primary care in 2-3 weeks (5) Hyponatremia: Code(s): E87.1 - Hypo-osmolality and hyponatremia Status: Acute Assessment and Plan: Resolved as of day of discharge. DS: Summary Hospital Course Reason for hospitalization: COPD exacerbation with acute respiratory failure with hypoxia and hypercapnia Hospital Course: See above for full hospital course Status at Discharge Overall status at discharge: patient is progressing back to baseline Time Spent with Patient Time attestation: Total time spent providing and/or coordinating discharge services: 35 minute Time spent: Greater than 30 minutes Exam Narrative: GENERAL APPEARANCE: Alert and oriented x 3, in no apparent distress. HEENT: PERRL, EOMI. Sclerae anicteric. Moist mucous membranes. NECK: Supple. No JVD or obvious carotid bruits. RESPIRATORY: Respirations are nonlabored. Breath sounds are equal and clear
[2021-07-23 12:03] LABS: Glucose Point of Care 274 mg/dl (65-105)
== END 2021-07-23 15:03 | disposition home or self-care (01) | DRG 189 ==
LOC: ANHED 14:10 → ANHIMU 14:53
PROVIDERS: Emergency Medicine; Internal Medicine; Nurse Practitioner Adult Health; Nurse Practitioner Family; Admitting Provider Internal Medicine; Emergency Provider Nurse Practitioner Family; PCP Internal Medicine; Visit Provider Student in an Organized Health Care Education/Training Program
DX: J96.22 Acute and chronic respiratory failure with hypercapnia (principal); E87.1 Hypo-osmolality and hyponatremia; J44.1 Chronic obstructive pulmonary disease with (acute) exacerbation; J96.01 Acute respiratory failure with hypoxia; E11.65 Type 2 diabetes mellitus with hyperglycemia; D72.829 Elevated white blood cell count, unspecified; T38.0X5A Adverse effect of glucocorticoids and synthetic analogues, initial encounter; E78.2 Mixed hyperlipidemia; E66.9 Obesity, unspecified; E53.8 Deficiency of other specified B group vitamins; E55.9 Vitamin D deficiency, unspecified; G47.10 Hypersomnia, unspecified; H91.90 Unspecified hearing loss, unspecified ear; H53.2 Diplopia; I11.9 Hypertensive heart disease without heart failure; Z87.891 Personal history of nicotine dependence; Z79.4 Long term (current) use of insulin; Z91.81 History of falling; Z68.30 Body mass index [BMI] 30.0-30.9, adult
CPT/HCPCS: 36415; 36600; 71046; 80048; 80053; 81001; 82375; 82805; 82948; 83050; 83605; 83735; 85025; 85610; 85730; 87502; 93005; 93970; 94002; 94003; 94618; 94640; 94660; 94762; 96361; 96372; 96374; 96375; 96376; 99285; A9270; C9803; G0378; J1650; J1815; J2270; J2930; J7030; J7050; J7512; U0003; U0005

== ENCOUNTER 2021-08-07 06:33 | Outpatient (CLI) | payer OTHER, SELFPAY ==
[2021-08-07 08:11] LABS: Basophils Absolute Auto 0.1 K/mm3 (0.0-0.1); Basophils Percent Auto 0.5 % (0.2-1.2); Eosinophils Absolute Auto 0.2 K/mm3 (0-0.3); Eosinophils Percent Auto 2.2 % (0-4.4); Hematocrit 46.7 % (42.0-52.0); Hemoglobin 14.9 g/dL (14.0-18.0); Immature Granulocyte Absolute 0.03 K/mm3 (0.00-0.031); Immature Granulocyte Percent A 0.3 % (0-0.5); Lymphocytes Absolute Auto 2.03 K/mm3 (0.9-3.2); Lymphocytes Percent Auto 18.8 % (18.3-44.2); Mean Corpuscular HGB Conc 31.9 g/dl (32-36); Mean Corpuscular Hemoglobin 30.1 pg (26-34); Mean Corpuscular Volume 94.3 fl (80-100); Mean Platelet Volume 9.4 fl (7.4-10.4); Monocytes Absolute Auto 0.9 K/mm3 (0.1-0.6); Monocytes Percent Auto 8.6 % (2.6-8.5); Neutrophils Absolute Auto 7.5 K/mm3 (1.3-6.7); Neutrophils Percent Auto 69.6 % (45.5-73.1); Platelet Count Result 347 k/mm3 (150-375); Red Blood Count 4.95 M/mm3 (4.6-6.20); Red Cell Distribution Width 11.9 % (11.5-14.5); White Blood Count 10.8 K/mm3 (4.5-10.0)
[2021-08-10 12:00] LABS: Alpha-1-Antitrypsin, QN 158 mg/dL (83-199)
== END 2021-08-07 06:34 | disposition home or self-care (01) ==
PROVIDERS: PCP Internal Medicine; Referring Provider Student in an Organized Health Care Education/Training Program; Visit Provider Internal Medicine Critical Care Medicine
DX: J44.9 Chronic obstructive pulmonary disease, unspecified (principal); D72.829 Elevated white blood cell count, unspecified
CPT/HCPCS: 36415; 82103; 82104; 85025

== ENCOUNTER 2021-08-19 13:32 | Outpatient (CLI) | payer OTHER, SELFPAY ==
--- NOTE | ~2021-08-19 | CT_ITS ---
EXAMINATION:CT lung screening DATE: 08/19/2021 13:50 INDICATION: Personal history of nicotine dependence. Current smoker with 50 pack year history. TECHNIQUE: Computed tomography (CT) of the chest was performed without intravenous contrast. Automate d exposure control and iterative reconstruction technique were employed. The dose-length product (DLP ) was 170.48 mGy-cm. COMPARISON: Chest CT 04/21/2009 FINDINGS: There is mild scarring at the lung apices. Calcified pulmonary nodules and calcified hilar and mediastinal lymph nodes are consistent with old granulomatous disease. There is severe emphysema. There are nodules without definite calcifications in the lungs measuring up to 3 mm. There is a 10 m m nodule with cavitation in right upper lobe, new from 04/21/09. No pleural effusion. The heart size is normal. There are coronary artery calcifications. No pericardial effusion. There are gallstones in t he gallbladder, which is normal in size. There are bridging endplate osteophytes at multiple levels i n the spine, consistent with diffuse idiopathic skeletal hyperostosis (DISH). IMPRESSION: 1. Lung-RADS category 4A: Suspicious. Noncontrast chest CT is recommended in 3 months.. Given the kya e oxygen use, the patient is likely not a candidate for percutaneous biopsy. Reviewed, dictated and finalized at location A. IMPRESSION: 1. Lung-RADS category 4A: Suspicious. Noncontrast chest CT is recommended in 3 months.. Given the home oxygen use, the patient is likely not a candidate for p ercutaneous biopsy.
[2021-08-19 14:00] VITALS: PULSE 74; O2SAT 90
[2021-08-19 14:05] VITALS: PULSE 86; O2SAT 87
[2021-08-19 14:10] VITALS: PULSE 92; O2SAT 88
[2021-08-19 14:15] VITALS: PULSE 97; O2SAT 91
[2021-08-19 14:25] VITALS: PULSE 76; O2SAT 90
--- NOTE | 2021-08-19 14:55 | HOMEO2EVAL ---
Evaluation was performed at [facility] Home Oxygen Evaluation RC: Home Oxygen (O2) Evaluation Start: 08/19/21 14:53 Freq: Status: Active Protocol: RPE Activity Type Activity Date Activity User E-sign Co-sign Detail Recorded Client Recorded Date Recorded By Document 08/19/21 14:00 DJO [email or web address] 08/19/21 14:55 DJO Document 08/19/21 14:05 [email or web address] [email or web address] 08/19/21 14:55 DJO Document 08/19/21 14:10 [email or web address] [email or web address] 08/19/21 14:55 DJO Document 08/19/21 14:15 [email or web address] [email or web address] 08/19/21 14:55 DJO Document 08/19/21 14:25 [email or web address] [email or web address] 08/19/21 14:55 DJO 08/19/21 08/19/21 08/19/21 14:00 14:05 14:10 Home O2 Evaluation Test Phase Resting Exercise Exercise Oxygen Delivery Room Air Room Air Nasal Cannula Oxygen Flow Rate (L/min) 1 Pulse Oximetry (90-100 %) 90 87 L 88 L Pulse Rate (60-100 beats/min) 74 86 92 Activity Tolerance Ambulation Distance (feet) Ambulation Distance (meters) Treatment Charges O2 Evaluation - Outpatient 08/19/21 08/19/21 14:15 14:25 Home O2 Evaluation Test Phase Exercise Resting Oxygen Delivery Nasal Cannula Room Air Oxygen Flow Rate (L/min) 2 Pulse Oximetry (90-100 %) 91 90 Pulse Rate (60-100 beats/min) 97 76 Activity Tolerance Good Ambulation Distance (feet) 750 Ambulation Distance (meters) 228.58 Treatment Charges
--- NOTE | 2021-08-20 10:55 | WPDPFTINT ---
PFT Procedure Performed PFT Procedure Performed Spirometry with Pre/Post Bronchodilator Plethysmography (Lung Vol) Diffusing Cap (DLCO) Flow Vol Loop PFT Interpretation Lung volumes were measured with the body plethysmography method. The elevated residual volume and FRC are indicative of air trapping. Spirometry showed diminished expiratory flow rates and a diminished FEV1 to FVC ratio of 36%, indicative of obstructive airway disease. Following administration of a bronchodilator there was significant increase in the FEV1. Lung diffusion capacity is mildly reduced at 60% predicted. The flow volume loop is consistent with obstructive airway disease. Impression: Severe obstructive airway disease with evidence of air trapping and significant response to bronchodilators on this testing. Mild reduction in lung diffusion capacity.
== END 2021-08-19 13:33 | disposition home or self-care (01) ==
PROVIDERS: PCP Internal Medicine; Visit Provider Internal Medicine Critical Care Medicine
DX: Z12.2 Encounter for screening for malignant neoplasm of respiratory organs (principal); Z87.891 Personal history of nicotine dependence; J44.9 Chronic obstructive pulmonary disease, unspecified; Z99.81 Dependence on supplemental oxygen; R91.1 Solitary pulmonary nodule
CPT/HCPCS: 71271; 94060; 94618; 94726; 94729

== ENCOUNTER 2021-09-15 08:00 | Outpatient (CLI) | payer OTHER, SELFPAY ==
--- NOTE | 2021-10-11 20:57 | WPDSLEEPSTUD ---
Sleep Study Date of Study: 09/15/21 Ordering Provider: Berenice Gastelum MD Interpreting Physician: Berenice Gastelum MD Sleep Study Type: Split Polysomnogram Height: 1.78 m Weight: 89.358 kg Body Mass Index: 28.3 Neck Circumference (inches): 19.5 [place]: 10 Reason for Sleep Study Witnessed snoring and apneas Sleep History Stone Contreras is a 70 year old man with emphysema and increased shortness of breath. He had an episode of respiratory failure was hospitalized during July. He went home on BiPAP 02/18 with 3 L of oxygen during sleep, 2 L of oxygen with exertion and 1 L at rest. He does not awaken from sleep feeling short of breath. He does not awaken at night with heartburn, belching or coughing. He does snore loudly. He rarely has trouble sleeping with a cold. He does not wake up gasping for breath at night. He does not have breathing problems at night observed by others while he is using the BiPAP. He occasionally sweats excessively at night. He rarely notices his heart pounding or beating irregularly at night. He does not fall asleep during the day, does not fall asleep involuntarily or while driving. He does not have loss of muscle tone with strong emotion. He rarely has daytime difficulties due to excessive sleepiness. He does not feel paralyzed on waking or when falling asleep. He rarely has vivid dreamlike scenes upon awakening or falling asleep. He does not feel afraid to go to sleep. He rarely has nightmares. He does not remember his dreams. He rarely has racing thoughts. He does not feel sad or depressed. He occasionally has anxiety, muscular tension and occasionally notices parts of his body jerking. He does not kick at night. He occasionally has crawling and aching feelings in his legs. He occasionally has leg pain during the night and leg cramps at night. He does not have morning jaw pain. He denies grinding his teeth at night. He does not have pain during the day and he is not awakened by pain during the night. He rarely wakes up feeling stiff in the morning. He rarely wakes up with sore or achy muscles. He does not wake up with pain in the neck and spine. Normal bedtime is between 9 and 10:00 p.m., taking 10 minutes to fall asleep but even more quickly falls asleep wearing his BiPAP just 5 minutes. He wakes up a few times during the night to urinate. He wakes the morning at 5:00 a.m.. He estimates getting between 6 and 7 hours of sleep at night. On weekends bedtime is later, between 11:00 p.m. or 12 midnight and he wakes by 7:00 a.m.. He takes naps in the afternoon or evening. A short nap may be refreshing. He feels better in the morning compared to other times of day. Habits: Former smoker. He drinks caffeine 3-4 servings a day. No alcohol or recreational drug. [facility] Past Medical History Medical History Abnormal EKG Abnormal finding of blood chemistry Benign essential hypertension BMI 28.0-28.9,adult BMI 29.0-29.9,adult COPD (chronic obstructive pulmonary disease) Cough Diplopia Encounter for preventive health examination Encounter for routine adult health examination without abnormal findings Encounter for special screening examination for neoplasm of prostate Fever Grade I diastolic dysfunction Hand pain, right Hearing loss Mixed hyperlipidemia Personal history of nicotine dependence Third nerve palsy Tobacco user Type 2 diabetes mellitus without complication, with long-term current use of insulin Umbilical hernia Vitamin B12 deficiency Vitamin D deficiency Wears hearing aid in both ears Family History Family History Father Family history of diabetes mellitus in first degree relative Diabetes mellitus COPD (chronic obstructive pulmonary disease) lobectomy for lung disease in his 40s Sibling Hypertension Family history of diabetes mellitus in f
[2021-10-11 23:20] VITALS: BMI 28.3
== END 2021-09-16 06:33 | disposition home or self-care (01) ==
LOC: ANHCSM 08:03
PROVIDERS: PCP Internal Medicine; Visit Provider Internal Medicine Critical Care Medicine
DX: G47.33 Obstructive sleep apnea (adult) (pediatric) (principal)
CPT/HCPCS: 95811

== ENCOUNTER 2021-11-13 06:33 | Outpatient (CLI) | payer OTHER, SELFPAY ==
[2021-11-13 07:03] LABS: Appearance Urine Clear (Clear); Bilirubin Urine Negative (Negative); Blood Urine Negative (Negative); Glucose Urine UA 3+ mg/dL (Negative); Ketones Urine Negative (Negative); Leukocyte Esterase Ur Negative LEU/UL (Negative); Nitrate Urine Negative (Negative); Protein Urine 2+ mg/dL (Negative); Urobilinogen Urine 0.2 mg/dL (<2.0)
[2021-11-13 07:11] LABS: Add Urine Microscopic? YES; Color Urine Light Yellow (Yellow)
[2021-11-13 07:12] LABS: Anion Gap 7 mmol/L (8-16); Blood Urea Nitrogen 15 mg/dL (9-20); Calcium 9.4 mg/dL (8.4-10.2); Carbon Dioxide 35 mmol/L (22-30); Chloride 101 mmol/L (98-107); Cholesterol 120 mg/dL (0-200); Estimated Glomerular Filt Rate > 60; Glucose 94 mg/dL (65-110); HDL Direct 50 mg/dL; Mucus Urine Rare /lpf; Potassium 4.6 mmol/L (3.4-5.0); RBC Urine 0-2 /hpf (0-2); Sodium 143 mmol/L (137-145); Triglycerides 96 mg/dL (<150); WBC Urine 0-3 /hpf
[2021-11-13 07:23] LABS: LDL Cholesterol Direct 46 mg/dL
[2021-11-13 07:38] LABS: Prostate Specific Antigen 1.3 ng/mL (< OR = 4.0)
[2021-11-13 07:42] LABS: Hemoglobin A1C 7.4 % (<5.7)
[2021-11-13 07:52] LABS: Free T4 Free Thyroxine 1.03 ng/mL (0.78-2.19); Vitamin D 25 Hydroxy 32.3 ng/mL
== END 2021-11-13 06:34 | disposition home or self-care (01) ==
LOC: ANHLAB 06:34
PROVIDERS: PCP Internal Medicine; Visit Provider Internal Medicine
DX: Z12.5 Encounter for screening for malignant neoplasm of prostate (principal); E55.9 Vitamin D deficiency, unspecified; E78.2 Mixed hyperlipidemia; E11.9 Type 2 diabetes mellitus without complications; Z51.81 Encounter for therapeutic drug level monitoring; Z79.899 Other long term (current) drug therapy; Z13.29 Encounter for screening for other suspected endocrine disorder; I10 Essential (primary) hypertension; Z79.4 Long term (current) use of insulin
CPT/HCPCS: 36415; 80048; 80061; 81001; 82306; 83036; 84153; 84439; 84443; G0103

== ENCOUNTER → 2021-11-27 07:56 | Outpatient (CLI) | payer OTHER, SELFPAY ==
--- NOTE | ~2021-11-27 | CT_ITS ---
EXAMINATION: CT diagnostic chest wo con DATE: 11/27/2021 08:15 INDICATION: Suspicious pulmonary nodule on lung cancer screening CT TECHNIQUE: Computed tomography (CT) of the chest was performed without intravenous contrast. The dose -length product (DLP) was 205.80 mGy-cm. Automated exposure control and iterative reconstruction tech [employer] were employed. COMPARISON: 08/19/2021 FINDINGS: There is severe emphysema. There is a stable 10 mm nodule with cavitation in the right uppe r lobe. Calcified pulmonary nodules and calcified bilateral hilar and mediastinal lymph nodes are con sistent with old granulomatous disease. No pleural effusion or pneumothorax. There are no pathologica lly enlarged thoracic lymph nodes. The heart size is normal. Calcified coronary artery atherosclerosi s is noted. There are multiple stones in the nondistended gallbladder. There are bridging osteophytes at multiple levels in the spine, consistent with diffuse idiopathic skeletal hyperostosis (DISH). IMPRESSION: 1. Stable right upper lobe nodule concerning for primary bronchogenic carcinoma. 2. Severe emphysema. 3. Cholelithiasis without evidence of cholecystitis. Reviewed, dictated and finalized at location B. IMPRESSION: 1. Stable right upper lobe nodule concerning for primary bronchogenic carcinoma . 2. Severe emphysema. 3. Cholelithiasis without evidence of cholecystitis.
== END ==
PROVIDERS: PCP Internal Medicine; Visit Provider Physician Assistant
DX: R91.1 Solitary pulmonary nodule (principal); J43.9 Emphysema, unspecified; K80.20 Calculus of gallbladder without cholecystitis without obstruction
CPT/HCPCS: 71250

== ENCOUNTER 2022-01-19 08:34 | Outpatient (CLI) | payer OTHER, SELFPAY ==
--- NOTE | ~2022-01-19 | PE_ITS ---
EXAMINATION: PET skull to mid thigh DATE: 01/19/2022 13:08 INDICATION: Pulmonary nodule. TECHNIQUE: Blood glucose level was 142 mg/dL. 11.127 mCi of 18-fluorodeoxyglucose (18-FDG) was admini stered i.v. Low dose computed tomography (CT) images were acquired from the base of the brain to the proximal thighs for attenuation correction and anatomic localization. Automated exposure control was employed. Dose-length product (DLP) was 669 mGy-cm. Positron emission tomography (PET) images were ac quired in the same distribution. COMPARISON: Chest CT 11/27/2021, 08/19/2021 FINDINGS: Head/neck: There is increased activity in the oral cavity, pharynx, mediastinal and right glands, and glottis without abnormal CT correlate, likely physiologic. There are no pathologically enlarged lymp h nodes. Chest: There is severe emphysema. Calcified pulmonary nodules and calcified hilar and mediastinal lym ph nodes are consistent with old granulomatous disease. There is a 10 mm nodule in right upper lobe w ith maximum SUV of 1.4. There is increased activity in a normal-sized right hilar lymph node, likely reactive. No pleural effusion. The heart size is normal. There are coronary artery calcifications. No pericardial effusion. There is increased activity in bone marrow without abnormal CT correlate, like ly bone marrow stimulation. Abdomen/pelvis/proximal thighs: Calcifications in the liver consistent with old granulomatous disease . There are gallstones in the gallbladder, which is normal in size. The spleen, pancreas, adrenal gla nds, and kidneys are normal. There is no urolithiasis. The prostate is moderately enlarged. There is diverticulosis of the colon without evidence of diverticulitis. There are no dilated loops of bowel. The appendix is normal. There are no pathologically enlarged lymph nodes. There is no free intraperit grover fluid. There is mild lumbar spondylosis. There is increased activity in bone marrow without abn ormal CT correlate, likely bone marrow stimulation. IMPRESSION: 1. 10 mm pulmonary nodule without increased activity, stable from 08/19/2021, likely benign. 2. Severe emphysema. Reviewed, dictated and finalized at location A. CAL ADMINISTRATIVE ASSISTANT IMPRESSION: 1. 10 mm pulmonary nodule without increased activity, stable from 08/19/2021, lik bhavani benign. 2. Severe emphysema.
[2022-01-19 08:52] LABS: Glucose Point of Care 142 mg/dl (65-105)
== END 2022-01-19 08:35 | disposition home or self-care (01) ==
LOC: ANHIMG 08:36
PROVIDERS: PCP Internal Medicine; Visit Provider Physician Assistant
DX: R91.1 Solitary pulmonary nodule (principal); J43.9 Emphysema, unspecified
CPT/HCPCS: 78815; A9552

== ENCOUNTER 2022-03-30 06:35 | Outpatient (CLI) | payer OTHER, SELFPAY ==
[2022-03-30 07:19] LABS: Alanine Aminotransferase 28 U/L (6-50); Albumin Level 4.4 g/dL (3.5-5.1); Alkaline Phosphatase 78 U/L (38-126); Anion Gap 6 mmol/L (8-16); Aspartate Amino Transferase 23 U/L (17-59); Bilirubin,Total 0.3 mg/dL (0.2-1.3); Blood Urea Nitrogen 13 mg/dL (9-20); Carbon Dioxide 33 mmol/L (22-30); Chloride 100 mmol/L (98-107); Cholesterol 114 mg/dL (0-200); Estimated Glomerular Filt Rate > 60; Glucose 112 mg/dL (65-110); HDL Direct 48 mg/dL; Potassium 3.8 mmol/L (3.4-5.0); Sodium 139 mmol/L (137-145); Triglycerides 105 mg/dL (<150)
[2022-03-30 07:30] LABS: LDL Cholesterol Direct 48 mg/dL
[2022-03-30 07:36] LABS: Free T4 Free Thyroxine 1.05 ng/mL (0.78-2.19)
[2022-03-30 08:37] LABS: Hemoglobin A1C 8.3 % (<5.7)
== END 2022-03-30 06:36 | disposition home or self-care (01) ==
LOC: ANHLAB 06:37
PROVIDERS: PCP Internal Medicine; Visit Provider Internal Medicine
DX: Z51.81 Encounter for therapeutic drug level monitoring (principal); Z79.899 Other long term (current) drug therapy; Z13.29 Encounter for screening for other suspected endocrine disorder; E11.9 Type 2 diabetes mellitus without complications; Z79.4 Long term (current) use of insulin; E78.2 Mixed hyperlipidemia; E55.9 Vitamin D deficiency, unspecified
CPT/HCPCS: 36415; 80053; 80061; 82306; 83036; 84439; 84443

== ENCOUNTER 2022-07-12 06:35 | Outpatient (CLI) | payer OTHER, SELFPAY ==
[2022-07-12 07:08] LABS: Basophils Absolute Auto 0.1 K/mm3 (0.0-0.1); Basophils Percent Auto 0.6 % (0.2-1.2); Eosinophils Absolute Auto 0.4 K/mm3 (0-0.3); Eosinophils Percent Auto 3.6 % (0-4.4); Hematocrit 48.7 % (42.0-52.0); Immature Granulocyte Absolute 0.04 K/mm3 (0.00-0.031); Immature Granulocyte Percent A 0.3 % (0-0.5); Lymphocytes Absolute Auto 3.01 K/mm3 (0.9-3.2); Lymphocytes Percent Auto 24.6 % (18.3-44.2); Mean Corpuscular HGB Conc 32.9 g/dl (32-36); Mean Corpuscular Hemoglobin 30.2 pg (26-34); Mean Corpuscular Volume 92.1 fl (80-100); Mean Platelet Volume 10.1 fl (7.4-10.4); Monocytes Absolute Auto 1.3 K/mm3 (0.1-0.6); Monocytes Percent Auto 10.5 % (2.6-8.5); Neutrophils Absolute Auto 7.4 K/mm3 (1.3-6.7); Neutrophils Percent Auto 60.4 % (45.5-73.1); Platelet Count Result 273 k/mm3 (150-375); Red Blood Count 5.29 M/mm3 (4.6-6.20); Red Cell Distribution Width 12.5 % (11.5-14.5); White Blood Count 12.3 K/mm3 (4.5-10.0)
[2022-07-12 07:15] LABS: Appearance Urine Clear (Clear); Bacteria Urine None Seen /hpf; Bilirubin Urine Negative (Negative); Blood Urine Negative (Negative); Color Urine Yellow (Yellow); Glucose Urine UA 3+ mg/dL (Negative); Ketones Urine Negative (Negative); Leukocyte Esterase Ur Negative LEU/UL (Negative); Nitrate Urine Negative (Negative); Non Pathogenic Casts 0-2; Protein Urine 3+ mg/dL (Negative); RBC Urine 0-2 /hpf (0-2); Specific Grav Ur 1.023 (1.001-1.035); Squamous Epithelial Cell Urine None seen /hpf (Few); Urobilinogen Urine 0.2 mg/dL (<2.0); WBC Urine 0-5 /hpf; pH Urine 6.5 (5.0-9.0)
[2022-07-12 07:16] LABS: Add Urine Microscopic? YES
[2022-07-12 07:18] LABS: Alanine Aminotransferase 26 U/L (6-50); Albumin Level 4.5 g/dL (3.5-5.1); Alkaline Phosphatase 72 U/L (38-126); Anion Gap 5 mmol/L (8-16); Aspartate Amino Transferase 22 U/L (17-59); Bilirubin,Total 0.6 mg/dL (0.2-1.3); Blood Urea Nitrogen 19 mg/dL (9-20); Calcium 9.1 mg/dL (8.4-10.2); Carbon Dioxide 34 mmol/L (22-30); Chloride 101 mmol/L (98-107); Cholesterol 135 mg/dL (0-200); Estimated Glomerular Filt Rate > 60; Glucose 66 mg/dL (65-110); HDL Direct 56 mg/dL; Potassium 3.4 mmol/L (3.4-5.0); Sodium 140 mmol/L (137-145); Triglycerides 95 mg/dL (<150)
[2022-07-12 07:29] LABS: LDL Cholesterol Direct 62 mg/dL
[2022-07-12 07:36] LABS: Hemoglobin A1C 7.7 % (<5.7)
[2022-07-12 07:37] LABS: Free T4 Free Thyroxine 1.18 ng/mL (0.78-2.19)
== END 2022-07-12 06:36 | disposition home or self-care (01) ==
LOC: ANHLAB 06:36
PROVIDERS: PCP Internal Medicine; Visit Provider Internal Medicine
DX: E11.9 Type 2 diabetes mellitus without complications (principal); Z79.4 Long term (current) use of insulin; E78.2 Mixed hyperlipidemia; Z79.899 Other long term (current) drug therapy; I10 Essential (primary) hypertension; Z13.29 Encounter for screening for other suspected endocrine disorder
CPT/HCPCS: 36415; 80053; 80061; 81001; 83036; 84439; 84443; 85025

== ENCOUNTER 2022-07-15 06:34 | Outpatient (CLI) | payer OTHER, SELFPAY ==
[2022-07-15 06:52] LABS: Basophils Absolute Auto 0.1 K/mm3 (0.0-0.1); Basophils Percent Auto 0.6 % (0.2-1.2); Eosinophils Absolute Auto 0.3 K/mm3 (0-0.3); Eosinophils Percent Auto 3.5 % (0-4.4); Hematocrit 50.5 % (42.0-52.0); Hemoglobin 16.5 g/dL (14.0-18.0); Immature Granulocyte Absolute 0.05 K/mm3 (0.00-0.031); Immature Granulocyte Percent A 0.5 % (0-0.5); Lymphocytes Percent Auto 21.3 % (18.3-44.2); Mean Corpuscular HGB Conc 32.7 g/dl (32-36); Mean Corpuscular Hemoglobin 30.4 pg (26-34); Mean Corpuscular Volume 93.2 fl (80-100); Mean Platelet Volume 9.9 fl (7.4-10.4); Monocytes Absolute Auto 0.9 K/mm3 (0.1-0.6); Monocytes Percent Auto 9.4 % (2.6-8.5); Neutrophils Absolute Auto 6.1 K/mm3 (1.3-6.7); Neutrophils Percent Auto 64.7 % (45.5-73.1); Platelet Count Result 249 k/mm3 (150-375); Red Blood Count 5.42 M/mm3 (4.6-6.20); Red Cell Distribution Width 12.5 % (11.5-14.5); White Blood Count 9.4 K/mm3 (4.5-10.0)
== END 2022-07-15 06:35 | disposition home or self-care (01) ==
PROVIDERS: PCP Internal Medicine; Visit Provider Internal Medicine
DX: R53.83 Other fatigue (principal); Z79.899 Other long term (current) drug therapy
CPT/HCPCS: 36415; 85025

== ENCOUNTER 2022-07-26 10:09 | Outpatient (CLI) | payer OTHER, SELFPAY ==
--- NOTE | ~2022-07-26 | CT_ITS ---
CT Scan of the Chest without Contrast: Clinical Indication: Pulmonary nodule Technique: Contiguous sections were acquired throughout the chest without intravenous contrast. Dose reduction technique was used on this scan by utilizing automated exposure control and iterative recon struction technique. The dose-length product (DLP) was 216.54 mGy-cm. COMPARISON: 11/27/2021 Findings: There is no evidence of any significant mediastinal, hilar or axillary lymphadenopathy. Small calcifi ed mediastinal and hilar lymph nodes are present. There are atherosclerotic calcifications of the aor ta and coronary arteries. There is no evidence of pleural or pericardial effusion. There is advanced emphysema. Multiple scattered calcified granulomas are present. There is a 5 mm non calcified right upper lobe pulmonary nodule mild stranding groundglass opacity (axial image 48). Ther e is an additional 8 mm noncalcified right upper lobe pulmonary nodule, similar to prior exam. Images through the upper abdomen reveal multiple calcified gallstones. Impression: 5 mm noncalcified right upper lobe pulmonary nodule, not seen on prior exam. According to Fleischner Society criteria, for a low-risk patient, no further follow-up required. For a high-risk patient, con psychometric examiner 12 month follow-up CT. Additional 8 mm noncalcified right upper lobe pulmonary nodule is similar to prior exam. Advanced emphysema. Evidence of prior granulomatous disease. Reviewed, dictated and finalized at location . Impression: 5 mm noncalcified right upper lobe pulmonary nodule, not seen on prior exam. Ac cording to Fleischner Society criteria, for a low-risk patient, no further foll ow-up required. For a high-risk patient, consider 12 month follow-up CT. Additional 8 mm noncalcified right upper lobe pulmonary nodule is similar to pr ior exam. Advanced emphysema. Evidence of prior granulomatous disease.
== END 2022-07-26 10:10 | disposition home or self-care (01) ==
PROVIDERS: PCP Internal Medicine; Visit Provider Physician Assistant
DX: R91.1 Solitary pulmonary nodule (principal); J43.9 Emphysema, unspecified
CPT/HCPCS: 71250

== ENCOUNTER 2022-08-26 07:55 | Outpatient (CLI) | payer OTHER, SELFPAY ==
[2022-08-26 08:15] VITALS: PULSE 66; O2SAT 94
[2022-08-26 08:20] VITALS: PULSE 82; O2SAT 88
[2022-08-26 08:22] VITALS: PULSE 90; O2SAT 92
[2022-08-26 08:30] VITALS: PULSE 74; O2SAT 93
--- NOTE | 2022-08-26 08:34 | HOMEO2EVAL ---
Evaluation was performed at [facility] Home Oxygen Evaluation RC: Home Oxygen (O2) Evaluation Start: 08/26/22 08:31 Freq: Status: Active Protocol: RPE Activity Type Activity Date Activity User E-sign Co-sign Detail Recorded Client Recorded Date Recorded By Document 08/26/22 08:15 PRITI [email or web address] 08/26/22 08:33 PRITI Document 08/26/22 08:20 PRITI [email or web address] 08/26/22 08:33 PRITI Document 08/26/22 08:22 PRITI [email or web address] 08/26/22 08:33 PRITI Document 08/26/22 08:30 PRITI [email or web address] 08/26/22 08:33 PRITI 08/26/22 08/26/22 08/26/22 08:15 08:20 08:22 Home O2 Evaluation [Oxygen] -Test Phase Resting Exercise Exercise -Oxygen Delivery Room Air Room Air Nasal Cannula -Oxygen Flow Rate (L/min) 2 [Pulse Oximetry] -Pulse Oximetry (90-100 %) 94 88 L 92 [Pulse Rate] -Pulse Rate (60-100 beats/min) 66 82 90 [Exercise] -Ambulation Distance (feet) 800 -Ambulation Distance (meters) 243.82 [Comments] -Home Oxygen Evaluation Comments Pt requires 2 liters with activity [Charges] -Treatment Charges O2 Evaluation - Outpatient 08/26/22 08:30 Home O2 Evaluation [Oxygen] -Test Phase Resting -Oxygen Delivery Room Air -Oxygen Flow Rate (L/min) [Pulse Oximetry] -Pulse Oximetry (90-100 %) 93 [Pulse Rate] -Pulse Rate (60-100 beats/min) 74 [Exercise] -Ambulation Distance (feet) -Ambulation Distance (meters) [Comments] -Home Oxygen Evaluation Comments [Charges] -Treatment Charges
== END 2022-08-26 07:56 | disposition home or self-care (01) ==
PROVIDERS: PCP Internal Medicine; Visit Provider Physician Assistant
DX: N18.9 Chronic kidney disease, unspecified (principal); Z99.81 Dependence on supplemental oxygen
CPT/HCPCS: 94618

== ENCOUNTER 2022-09-15 13:31 | Outpatient (CLI) | payer OTHER, SELFPAY ==
--- NOTE | 2022-09-15 13:46 | ECHO_ITS ---
Patient Info Name: Stone Contreras Age: 71 years : 1950 Gender: Male Ht: 70 in Wt: 213 lbs BSA: 2.21 m2 HR: 53 bpm BP: 160 / 77 mmHg Heart Rhythm: Sinus Rhythm Technical Quality: Fair Exam Date: 09/15/2022 1:55 PM Exam Location: [facility] Patient Status: Outpatient Admit Date: 09/15/2022 Staff Ordering Physician: Pasquale Briggs MD Interceptor Operator: Aga Wesley RDCS Attending Provider: Pasquale Briggs MD Referring Physician: Chester BAGLEY; Exam Type: CA echo dop color flow w con Study Info Indications - RBBB R94.31 - Abnormal electrocardiogram ECG EKG Complete two-dimensional, color flow and Doppler transthoracic echocardiogram is performed with contrast to opacify the left ventricle and to improve the deliniation of the left ventricle endocardial borders. Contrast/Agitated Saline Contrast/Ag. Saline: Definity Amount: 2.00 ml Administered By: Aga Wesley RDCS New IV Access: Left Site Condition: IV removed Summary 1. Left ventricular chamber dimension is normal. 2. Definity contrast administered improved wall motion interpretation. 3. Left ventricular systolic function is normal, estimated at 65-70%. 4. The left ventricular diastolic function is grade I diastolic dysfunction. 5. E/e' 13 is mildly elevated. 6. Right atrial chamber dimension is mildly enlarged. 7. No pulmonary hypertension, estimated pulmonary arterial systolic pressure is 14 mmHg. Left Ventricle E/e' 13 is mildly elevated. Definity contrast administered improved wall motion interpretation. Left ventricular chamber dimension is normal. Left ventricular systolic function is normal, estimated at 65-70%. The left ventricular diastolic function is grade I diastolic dysfunction. Right Ventricle Right ventricular systolic function is normal and with normal TAPSE 2.5 cm. Right ventricular chamber dimension is normal. Left Atria Left atrial chamber dimension is normal. Right Atria Right atrial chamber dimension is mildly enlarged. Aortic Valve The aortic valve is trileaflet. There is no aortic valve stenosis. There is no aortic valve regurgitation. Pulmonic Valve There is no pulmonic regurgitation. Mitral Valve There is no mitral valve stenosis. There is no mitral valve regurgitation. Tricuspid Valve There is no tricuspid valve regurgitation. No pulmonary hypertension, estimated pulmonary arterial systolic pressure is 14 mmHg. Pericardium/Pleural There is no pericardial effusion. Inferior Vena Cava Normal inferior vena cava with >50% collapse upon inspiration consistent with normal right atrial pressure, 5 mmHg. Aorta The aortic root size at the sinus of Valsalva is normal. Left Ventricular Outflow Tract Name Value Normal LVOT 2D LVOT Diameter 2.23 cm LVOT Doppler LVOT Peak Gradient 6 mmHg LVOT Mean Gradient 3 mmHg LVOT VTI 19.05 cm LVOT VTI/AV VTI Ratio 0.53 LVOT Stroke Volume 74.66 ml LVOT CO 2.77 l/min LVOT CI 1.25 L/min/m
[2022-09-15] MEDS: PERFLUTREN LIPID MICROSPHERES 1.5 ML VIAL DILUTED TO 10 ML TOTAL VOLUME IV PUSH (14:47)
--- NOTE | 2022-09-21 16:05 | WPDHOLTEREM ---
Holter/Event Monitor Holter/Event Monitor Date of procedure: 09/15/22 Holter/Event Procedure: 48 Hr Holter Monitor Indications: RBBB Conclusion: 1. 48 hour holter monitor on 09/15/22. 2. Predominant rhythm is sinus rhythm. HR range 47-86 bpm; average HR 73 bpm. HR at 47 bpm was at 03:19. 3. There are 31 premature supraventricular complexes. No supraventricular tachycardia. 4. There are 21,900 premature ventricular complexes, 987 ventricular couplets, 31 ventricular triplets, 14,079 ventricular bigeminy and 18,934 ventricular trigeminy. There are 2 episodes of multifocal ventricular arrhythmia lasting 4 beats, HR at 102 bpm and 92 bpm. 5. Baseline right bundle branch block. No sinoatrial or atrioventricular blocks. No significant pauses greater than 2 seconds. 6. No symptoms available for correlation.
== END 2022-09-15 13:32 | disposition home or self-care (01) ==
LOC: ANHCARD 13:31
PROVIDERS: PCP Internal Medicine; Visit Provider Internal Medicine
DX: I45.10 Unspecified right bundle-branch block (principal); R94.31 Abnormal electrocardiogram [ECG] [EKG]; R00.8 Other abnormalities of heart beat
CPT/HCPCS: 93225; 93226; C8929; Q9957

== ENCOUNTER 2022-12-01 07:54 | Outpatient (CLI) | payer OTHER, SELFPAY ==
--- NOTE | ~2022-12-01 | NM_ITS ---
EXAMINATION: NM reji stress w perfusion DATE: 12/01/2022 10:10 INDICATION: Other forms of dyspnea TECHNIQUE: Rest images were obtained following intravenous administration of 11 mCi Tc99m tetrofosmin (Myoview). The patient was infused intravenously with Lexiscan (Regadenoson). Then, 34 mCi Tc99m tet rofosmin (Myoview) was administered intravenously, and stress images were obtained. Data was reconstr ucted into short axis and horizontal and vertical long axis SPECT images. Gated SPECT images were als o obtained. COMPARISON: None. FINDINGS: There is no definite reversible or fixed perfusion abnormality to suggest ischemia or infar ction. There is normal left ventricular chamber size, wall motion and ejection fraction. Left ventr icular ejection fraction measures 58%. IMPRESSION: 1. Normal myocardial perfusion at rest and during stress. 2. Left ventricular ejection fraction measuring 58%. Reviewed, dictated and finalized at location A.
--- NOTE | 2022-12-01 08:25 | EST_ITS ---
Patient Info Name: Stone Contreras Age: 71 years : 1950 Gender: Male Ht: 71 in Wt: 215 lbs BSA: 2.23 m2 HR: 53 bpm BP: 146 / 58 mmHg Heart Rhythm: Sinus Rhythm Exam Date: 12/01/2022 8:54 AM Exam Location: [facility] Stress Patient Status: Outpatient Admit Date: 12/01/2022 Staff Ordering Physician: Familia Ramirez DO Attending Provider: Familia Ramirez DO Exercise Technologist: Karmen Bond CT Exercise Physician: Familia Ramirez DO Exam Type: CA stress reji w NM Study Info Indications R06.09 - Other forms of dyspnea A regadenoson stress test was performed. Summary 1. 1. Negative lexiscan stress test for ischemic ST changes by ECG criteria. 2. 2. Baseline hypertension. 3. 3. Nuclear scan to follow and will be reported separately. Please correlate with it. 4. 4. Patient informed of the above results. Protocol: Lexiscan Stress ECG Details Stage: REST Duration (min): 1 min : 1 sec HR (bpm): 54 SBP (mmHg): 146 DBP (mmHg): 58 Stage: REST Duration (min): 6 min : 21 sec HR (bpm): 59 SBP (mmHg): 146 DBP (mmHg): 58 Stage: STAGE 1 Duration (min): 0 min : 59 sec HR (bpm): 66 SBP (mmHg): 146 DBP (mmHg): 58 Stage: RECOVERY Duration (min): 1 min : 0 sec HR (bpm): 68 SBP (mmHg): 168 DBP (mmHg): 55 Stage: RECOVERY Duration (min): 2 min : 0 sec HR (bpm): 67 SBP (mmHg): 168 DBP (mmHg): 55 Stage: RECOVERY Duration (min): 3 min : 0 sec HR (bpm): 62 SBP (mmHg): 168 DBP (mmHg): 55 Stage: RECOVERY Duration (min): 3 min : 17 sec HR (bpm): 61 SBP (mmHg): 157 DBP (mmHg): 61 Rest HR: 59 bpm Peak HR: 69 bpm Rest Sys BP: 146 mmHg Peak Sys BP: 168 mmHg Max Pred HR: 150 bpm % Max Pred HR: 46 % Target HR: 128 bpm Max RPP: 11,592 bpm*mmHg Termination Reason: Completed protocol Cardiac Symptoms: Shortness of breath Total Time: 1 min : 0 sec Rest Oden BP: 58 mmHg Peak Oden BP: 55 mmHg Total Dose: 0.4 mg Resting ECG Sinus rhythm, RBBB. Stress ECG No ST changes. Arrhythmias None. Report Signatures
== END 2022-12-01 07:55 | disposition home or self-care (01) ==
LOC: ANHCARD 07:57
PROVIDERS: PCP Internal Medicine; Visit Provider Internal Medicine Cardiovascular Disease
DX: R06.09 Other forms of dyspnea (principal)
CPT/HCPCS: 78452; 93017; A9502; J2785

== ENCOUNTER 2022-12-20 06:35 | Outpatient (CLI) | payer OTHER, SELFPAY ==
[2022-12-20 07:34] LABS: Alanine Aminotransferase 26 U/L (6-50); Albumin Level 4.7 g/dL (3.5-5.1); Alkaline Phosphatase 78 U/L (38-126); Anion Gap 8 mmol/L (8-16); Aspartate Amino Transferase 22 U/L (17-59); Bilirubin,Total 0.7 mg/dL (0.2-1.3); Blood Urea Nitrogen 19 mg/dL (9-20); Calcium 9.2 mg/dL (8.4-10.2); Carbon Dioxide 33 mmol/L (22-30); Chloride 98 mmol/L (98-107); Cholesterol 131 mg/dL (0-200); Estimated Glomerular Filt Rate > 60; Glucose 106 mg/dL (65-110); HDL Direct 45 mg/dL; Potassium 3.2 mmol/L (3.4-5.0); Sodium 139 mmol/L (137-145); Triglycerides 203 mg/dL (<150)
[2022-12-20 07:45] LABS: LDL Cholesterol Direct 58 mg/dL
[2022-12-20 07:47] LABS: Hemoglobin A1C 8.1 % (<5.7)
[2022-12-20 08:04] LABS: Prostate Specific Antigen 1.2 ng/mL (< OR = 4.0)
== END 2022-12-20 06:36 | disposition home or self-care (01) ==
LOC: ANHLAB 06:36
PROVIDERS: PCP Internal Medicine; Visit Provider Internal Medicine
DX: Z12.5 Encounter for screening for malignant neoplasm of prostate (principal); I10 Essential (primary) hypertension; E11.9 Type 2 diabetes mellitus without complications; E78.2 Mixed hyperlipidemia; Z79.4 Long term (current) use of insulin
CPT/HCPCS: 36415; 80053; 80061; 83036; 84153; G0103

== ENCOUNTER 2023-02-10 06:38 | Outpatient (CLI) | payer OTHER, SELFPAY ==
[2023-02-10 08:20] LABS: Anion Gap 11 mmol/L (8-16); Blood Urea Nitrogen 23 mg/dL (9-20); Carbon Dioxide 29 mmol/L (22-30); Chloride 98 mmol/L (98-107); Estimated Glomerular Filt Rate > 60; Glucose 203 mg/dL (65-110); Magnesium 1.8 mg/dL (1.6-2.3); Potassium 3.6 mmol/L (3.4-5.0); Sodium 138 mmol/L (137-145)
== END 2023-02-10 06:39 | disposition home or self-care (01) ==
LOC: ANHLAB 06:39
PROVIDERS: PCP Internal Medicine; Visit Provider Internal Medicine Cardiovascular Disease
DX: I49.3 Ventricular premature depolarization (principal)
CPT/HCPCS: 36415; 80048; 83735

== ENCOUNTER 2023-05-03 06:35 | Outpatient (CLI) | payer OTHER, SELFPAY ==
[2023-05-03 07:20] LABS: Basophils Absolute Auto 0.1 K/mm3 (0.0-0.1); Basophils Percent Auto 0.5 % (0.2-1.2); Eosinophils Absolute Auto 0.4 K/mm3 (0-0.3); Eosinophils Percent Auto 3.2 % (0-4.4); Hematocrit 47.5 % (42.0-52.0); Hemoglobin 15.8 g/dL (14.0-18.0); Immature Granulocyte Absolute 0.03 K/mm3 (0.00-0.031); Immature Granulocyte Percent A 0.3 % (0-0.5); Lymphocytes Absolute Auto 1.46 K/mm3 (0.9-3.2); Lymphocytes Percent Auto 13.4 % (18.3-44.2); Mean Corpuscular HGB Conc 33.3 g/dl (32-36); Mean Corpuscular Volume 93.3 fl (80-100); Mean Platelet Volume 9.5 fl (7.4-10.4); Monocytes Absolute Auto 0.9 K/mm3 (0.1-0.6); Monocytes Percent Auto 8.6 % (2.6-8.5); Neutrophils Absolute Auto 8.1 K/mm3 (1.3-6.7); Platelet Count Result 235 k/mm3 (150-375); Red Blood Count 5.09 M/mm3 (4.6-6.20); Red Cell Distribution Width 11.7 % (11.5-14.5); White Blood Count 10.9 K/mm3 (4.5-10.0)
[2023-05-03 07:38] LABS: Alanine Aminotransferase 21 U/L (6-50); Albumin Level 4.4 g/dL (3.5-5.1); Alkaline Phosphatase 85 U/L (38-126); Anion Gap 6 mmol/L (8-16); Aspartate Amino Transferase 23 U/L (17-59); Bilirubin,Total 0.9 mg/dL (0.2-1.3); Blood Urea Nitrogen 16 mg/dL (9-20); Calcium 9.5 mg/dL (8.4-10.2); Carbon Dioxide 33 mmol/L (22-30); Chloride 101 mmol/L (98-107); Cholesterol 106 mg/dL (0-200); Estimated Glomerular Filt Rate > 60; Glucose 121 mg/dL (65-110); HDL Direct 40 mg/dL; Potassium 3.7 mmol/L (3.4-5.0); Sodium 140 mmol/L (137-145); Triglycerides 138 mg/dL (<150)
[2023-05-03 07:47] LABS: Creatinine Urine 15.1 mg/dL
[2023-05-03 07:48] LABS: LDL Cholesterol Direct 54 mg/dL
[2023-05-03 07:52] LABS: MALB Creatinine Ratio 770.9 mg/g (0-30); Microalbumin Urine Random 116.4 mg/L (0-16.7)
[2023-05-03 08:03] LABS: Hemoglobin A1C 8.2 % (<5.7)
[2023-05-03 08:08] LABS: Appearance Urine Clear (Clear); Bacteria Urine None Seen /hpf; Bilirubin Urine Negative (Negative); Blood Urine Negative (Negative); Color Urine Yellow (Yellow); Glucose Urine UA 3+ mg/dL (Negative); Ketones Urine Negative (Negative); Leukocyte Esterase Ur Negative LEU/UL (Negative); Need Manual Microscopic Reviewed; Nitrate Urine Negative (Negative); Non Pathogenic Casts 0-2; Protein Urine Trace mg/dL (Negative); RBC Urine 0-2 /hpf (0-2); Specific Grav Ur 1.009 (1.001-1.035); Squamous Epithelial Cell Urine None seen /hpf (Few); Urobilinogen Urine 0.2 mg/dL (<2.0); WBC Urine 0-5 /hpf
[2023-05-03 08:09] LABS: Add Urine Microscopic? YES
== END 2023-05-03 06:36 | disposition home or self-care (01) ==
LOC: ANHLAB 06:36
PROVIDERS: PCP Internal Medicine; Visit Provider Internal Medicine
DX: E78.2 Mixed hyperlipidemia (principal); E11.9 Type 2 diabetes mellitus without complications; I10 Essential (primary) hypertension; Z79.4 Long term (current) use of insulin; Z79.899 Other long term (current) drug therapy
CPT/HCPCS: 36415; 80053; 80061; 81001; 82043; 83036; 85025

== ENCOUNTER 2023-08-09 10:28 | Outpatient (CLI) | payer OTHER, SELFPAY ==
--- NOTE | ~2023-08-09 | CT_ITS ---
CT Scan of the Chest without Contrast: Clinical Indication: Solitary pulmonary nodule Technique: Contiguous sections were acquired throughout the chest without intravenous contrast. Dose reduction technique was used on this scan by utilizing automated exposure control and iterative recon struction technique. The dose-length product (DLP) was 221.08 mGy-cm. COMPARISON: 07/26/2022 Findings: There is no evidence of any significant mediastinal, hilar or axillary lymphadenopathy. Calcified med iastinal and hilar lymph nodes are present. Coronary artery calcium cages are present. No aortic aneu rysm. There is no evidence of pleural or pericardial effusion. There are numerous subcentimeter pulmonary nodules, especially right upper lobe, largest measuring 5 mm, all which appear essentially unchanged. Many of these are calcified granulomas, but some of the n odules are noncalcified. Moderate to severe emphysema present. Images through the upper abdomen reveal multiple small calcified gallstones. Impression: Lung RADS 2: Benign appearance. 12 month follow-up screening CT advised. Emphysema, as above. Cholelithiasis. Reviewed, dictated and finalized at location M. Impression: Lung RADS 2: Benign appearance. 12 month follow-up screening CT advised. Emphysema, as above. Cholelithiasis.
== END 2023-08-09 10:29 | disposition home or self-care (01) ==
PROVIDERS: PCP Internal Medicine; Visit Provider Physician Assistant
DX: R91.1 Solitary pulmonary nodule (principal); Z87.891 Personal history of nicotine dependence; J43.9 Emphysema, unspecified; K80.20 Calculus of gallbladder without cholecystitis without obstruction
CPT/HCPCS: 71250

== ENCOUNTER 2023-12-29 06:30 | Outpatient (CLI) | payer OTHER, SELFPAY ==
[2023-12-29 08:04] LABS: Alanine Aminotransferase 24 U/L (6-50); Albumin Level 4.5 g/dL (3.5-5.1); Alkaline Phosphatase 61 U/L (38-126); Anion Gap 8 mmol/L (4-12); Aspartate Amino Transferase 28 U/L (17-59); Bilirubin,Total 0.7 mg/dL (0.2-1.3); Blood Urea Nitrogen 19 mg/dL (9-20); Calcium 9.2 mg/dL (8.4-10.2); Carbon Dioxide 34 mmol/L (22-30); Chloride 100 mmol/L (98-107); Cholesterol 120 mg/dL (0-200); Estimated Glomerular Filt Rate > 60; Glucose 86 mg/dL (65-110); HDL Direct 45 mg/dL; Potassium 3.8 mmol/L (3.4-5.0); Sodium 142 mmol/L (137-145); Triglycerides 131 mg/dL (<150)
[2023-12-29 08:16] LABS: LDL Cholesterol Direct 47 mg/dL
[2023-12-29 08:22] LABS: Basophils Absolute Auto 0.1 K/mm3 (0.0-0.1); Basophils Percent Auto 0.6 % (0.2-1.2); Eosinophils Absolute Auto 0.6 K/mm3 (0-0.3); Hematocrit 47.9 % (42.0-52.0); Hemoglobin 15.9 g/dL (14.0-18.0); Immature Granulocyte Absolute 0.01 K/mm3 (0.00-0.031); Immature Granulocyte Percent A 0.1 % (0-0.5); Lymphocytes Absolute Auto 1.96 K/mm3 (0.9-3.2); Lymphocytes Percent Auto 19.8 % (18.3-44.2); Mean Corpuscular HGB Conc 33.2 g/dl (32-36); Mean Corpuscular Hemoglobin 31.5 pg (26-34); Mean Corpuscular Volume 94.9 fl (80-100); Mean Platelet Volume 9.9 fl (7.4-10.4); Monocytes Percent Auto 9.8 % (2.6-8.5); Neutrophils Absolute Auto 6.3 K/mm3 (1.3-6.7); Neutrophils Percent Auto 63.7 % (45.5-73.1); Platelet Count Result 237 k/mm3 (150-375); Red Blood Count 5.05 M/mm3 (4.6-6.20); Red Cell Distribution Width 12.3 % (11.5-14.5); White Blood Count 9.9 K/mm3 (4.5-10.0)
[2023-12-29 08:35] LABS: Prostate Specific Antigen 1.4 ng/mL (< OR = 4.0)
[2023-12-29 08:46] LABS: Free T4 Free Thyroxine 0.99 ng/mL (0.78-2.19)
[2023-12-29 09:01] LABS: Creatinine Urine 88.6 mg/dL
[2023-12-29 09:44] LABS: Hemoglobin A1C 7.2 % (<5.7)
[2023-12-29 10:16] LABS: MALB Creatinine Ratio 1061.6 mg/g (0-30); Microalbumin Urine Random 940.6 mg/L (0-16.7)
== END 2023-12-29 06:31 | disposition home or self-care (01) ==
LOC: ANHLAB 06:33
PROVIDERS: PCP Internal Medicine; Visit Provider Internal Medicine
DX: I10 Essential (primary) hypertension (principal); Z12.5 Encounter for screening for malignant neoplasm of prostate; Z79.899 Other long term (current) drug therapy; E78.2 Mixed hyperlipidemia; Z13.29 Encounter for screening for other suspected endocrine disorder; E11.9 Type 2 diabetes mellitus without complications; Z79.4 Long term (current) use of insulin
CPT/HCPCS: 36415; 80053; 80061; 82043; 83036; 84153; 84439; 84443; 85025; G0103

== ENCOUNTER 2024-05-14 14:20 | Outpatient (CLI) | payer OTHER, MEDICARE, SELFPAY ==
[2024-05-14 08:35] LABS: LDL Cholesterol Direct 37 mg/dL
[2024-05-14 08:55] LABS: Vitamin D 25 Hydroxy 49.3 ng/mL
[2024-05-14 08:58] LABS: Alanine Aminotransferase 24 U/L (6-50); Albumin Level 4.6 g/dL (3.5-5.1); Alkaline Phosphatase 69 U/L (38-126); Anion Gap 12 mmol/L (4-12); Aspartate Amino Transferase 24 U/L (17-59); Bilirubin,Total 0.8 mg/dL (0.2-1.3); Blood Urea Nitrogen 17 mg/dL (9-20); Calcium 9.5 mg/dL (8.4-10.2); Carbon Dioxide 29 mmol/L (22-30); Chloride 102 mmol/L (98-107); Cholesterol 107 mg/dL (0-200); Estimated Glomerular Filt Rate > 60; Glucose 47 mg/dL (65-110); HDL Direct 51 mg/dL; Potassium 2.7 mmol/L (3.4-5.0); Sodium 143 mmol/L (137-145); Triglycerides 99 mg/dL (<150)
[2024-05-14 14:30] LABS: Hemoglobin A1C 6.8 % (<5.7)
[2024-05-14 15:20] LABS: Anion Gap 14 mmol/L (4-12); Blood Urea Nitrogen 18 mg/dL (9-20); Calcium 9.4 mg/dL (8.4-10.2); Carbon Dioxide 27 mmol/L (22-30); Chloride 100 mmol/L (98-107); Estimated Glomerular Filt Rate > 60; Glucose 135 mg/dL (65-110); Sodium 141 mmol/L (137-145)
== END 2024-05-14 14:21 | disposition home or self-care (01) ==
PROVIDERS: PCP Internal Medicine; Visit Provider Internal Medicine
DX: E55.9 Vitamin D deficiency, unspecified (principal); E78.2 Mixed hyperlipidemia; I10 Essential (primary) hypertension; E11.9 Type 2 diabetes mellitus without complications; E87.6 Hypokalemia; Z79.4 Long term (current) use of insulin
CPT/HCPCS: 36415; 80048; 80053; 80061; 82306; 83036

== ENCOUNTER 2024-09-03 09:25 | Outpatient (CLI) | payer OTHER, SELFPAY ==
--- NOTE | ~2024-09-03 | CT_ITS ---
CT Scan of the Chest without Contrast: Clinical Indication: Lung cancer screening, nicotine dependence Technique: Contiguous sections were acquired throughout the chest without intravenous contrast. Dose reduction technique was used on this scan by utilizing automated exposure control and iterative recon struction technique. The dose-length product (DLP) was 166.50 mGy-cm. COMPARISON: 08/09/2023 Findings: There is no evidence of any significant mediastinal, hilar or axillary lymphadenopathy. Calcified med iastinal and hilar lymph nodes are present. Coronary artery calcifications are present. There is no evidence of pleural or pericardial effusion. There is advanced emphysema with biapical scarring. Numerous calcified granulomas are present. There is a 12 mm irregular nodular opacity in the left upper lobe (axial image 49). There is a 1.3 cm nodul e in the superior segment left lower lobe (axial image 52). There is a 5 mm nodule in the right upper lobe (axial image 53). Images through the upper abdomen reveal calcified gallstones. Impression: Lung RADS 4B: Very suspicious. There is new 12 mm left upper lobe nodule and new 1.3 cm left lower lo be nodule. Recommend PET/CT and/or tissue sampling to establish histologic diagnosis. Advanced emphysema with biapical scarring and numerous calcified granulomas. Reviewed, dictated and finalized at [facility]. Impression: Lung RADS 4B: Very suspicious. There is new 12 mm left upper lobe nodule and ne w 1.3 cm left lower lobe nodule. Recommend PET/CT and/or tissue sampling to est ablish histologic diagnosis. Advanced emphysema with biapical scarring and numerous calcified granulomas.
== END 2024-09-03 09:26 | disposition home or self-care (01) ==
PROVIDERS: PCP Internal Medicine; Visit Provider Physician Assistant
DX: R91.8 Other nonspecific abnormal finding of lung field (principal); Z12.2 Encounter for screening for malignant neoplasm of respiratory organs; Z87.891 Personal history of nicotine dependence
CPT/HCPCS: 71271

== ENCOUNTER 2024-09-18 13:56 | Outpatient (CLI) | payer OTHER, SELFPAY ==
--- NOTE | ~2024-09-18 | PE_ITS ---
EXAMINATION: PET skull to mid thigh DATE: 09/18/2024 15:54 INDICATION: Abnormal findings of lung field TECHNIQUE: Blood glucose level was 100 mg/dL. 10.093 mCi of 18-fluorodeoxyglucose (18-FDG) was admini stered i.v. Low dose computed tomography (CT) images were acquired from the base of the brain to the proximal thighs for attenuation correction and anatomic localization. Positron emission tomography (P ET) images were acquired in the same distribution beginning 59 minutes after injection. Images includ ing fused PET/CT images were reconstructed in axial, coronal, and sagittal planes. Automated exposure control technique was employed. The dose-length product was 1225.83mGy-cm. COMPARISON: CT studies dated 09/03/2024 and 08/09/2023 FINDINGS: Head/neck: There is symmetric increased activity in the oral cavity, laryngeal muscles and ocular muscles withou t CT correlate, likely physiologic. No pathologically enlarged cervical lymphadenopathy or suspicious foci of increased FDG uptake in the visualized head or neck. Chest: Severe emphysema. Small band of linear likely atelectasis/scarring at the right apex without abnormal increased FDG uptake. Numerous scattered bilateral calcified pulmonary nodules along with calcified bilateral hilar and mediastinal lymph nodes consistent with old granulomatous disease. There is promi nent increased uptake associated with the 2 previous noted concerning pulmonary nodules, the largest in the superior segment of the left lower lobe measuring 1.4 cm with maximal SUV of 12.7 and the seco nd 12 mm nodule at the anterior segment of the left upper lobe with maximal SUV of 11.1. No abnormal FDG uptake associated with a 5 mm nodule in the right upper lobe which remained unchanged since 2023. No pleural effusion. No pathologically enlarged or FDG avid thoracic lymphadenopathy. Heart siz e is normal. Atherosclerotic coronary artery calcification. No pericardial effusion. Thoracic aorta i s normal in caliber. Abdomen/pelvis/proximal thighs: Physiologic renal accumulation and excretion of FDG activity in the kidneys, bladder and along portio ns of ureters. Normal degree and heterogenous pattern of increased uptake throughout the liver withou t radiologic correlate or dominant FDG avid lesion. Multiple gallstones filling the otherwise normal- appearing gallbladder. The pancreas, spleen and bilateral adrenal glands are normal. Prominent uptake scattered throughout the predominantly the colon and distal small bowel without radiologic correlate , also likely physiologic. Prostatomegaly measuring 5.4 x 4.4 cm. No other abnormal foci of increased FDG uptake or pathologically enlarged lymphadenopathy in the abdomen, pelvis or proximal thighs. Musculoskeletal: Small sclerotic bone island at the right femoral head without increased FDG uptake. No suspicious lyt ic, blastic or abnormally FDG avid bone lesions identified. IMPRESSION: 1. Prominent increased uptake associated with 1.4 cm right lower lobe and 1.2 cm left upper lobe nodu les which could be either primary lung cancer or infectious/inflammatory in etiology. If the patient is a biopsy candidate not requiring supplemental oxygen at baseline would consider percutaneous CT-gu ided biopsy of the left lower lobe nodule. 2. No other lesions suspicious for primary malignancy or metastatic disease. Reviewed, dictated and finalized at location A. IMPRESSION: 1. Prominent increased uptake associated with 1.4 cm right lower lobe and 1.2 c m left upper lobe nodules which could be either primary lung cancer or infectio us/inflammatory in etiology. If the patient is a biopsy candidate not requiring supplemental oxygen at baseline would consider percutaneous CT-guided biopsy o f the left lower lobe nodule. 2. No other lesions suspicious for primary malignancy or metastatic disease.
--- OUTSIDE RECORDS SUMMARY | 2024-09-18 14:04 | XMS_ITS | Clinical Summary ---
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 ENGINEER Gender Identity Not on file Sexual Orientation Not on file Obstetrics History Last Filed Vital Signs Vital Sign Reading Time Taken Comments Blood Pressure 130/80 04/24/2018 2:00 PM RURAL ELECTRIFICATION ENGINEER Pulse 74 04/24/2018 2:00 PM RURAL ELECTRIFICATION ENGINEER Temperature 36.7 C (98 F) 09/15/2012 12:01 PM CDT Respiratory Rate - - Oxygen Saturation 93% 09/15/2012 12:01 PM CDT Inhaled Oxygen Concentration - - Weight 93 kg (205 lb) 04/24/2018 2:00 PM RURAL ELECTRIFICATION ENGINEER Height 177.8 cm (5' 10) 04/24/2018 2:00 PM RURAL ELECTRIFICATION ENGINEER Body Mass Index 29.41 04/24/2018 2:00 PM RURAL ELECTRIFICATION ENGINEER Plan of Treatment Health Maintenance Due Date Last Done Comments Colon Cancer Screening-Colonoscopy 1950 Depression Screening 1950 Fall Risk Assessment 1950 Hepatitis C Screening 1950 DTaP/Tdap/Td Vaccine (1 - Tdap) 12/05/1962 Hepatitis B Screening 12/05/1969 Pneumococcal vaccine 65+ (1 of 1 - PCV) 12/05/2001 Zoster Vaccine (1 of 2) 12/05/2001 Abdominal Aortic Aneurysm (A AA) Screen 12/05/2016 Well Visit 65+ 12/05/2016 Covid-19 Vaccine ( season) 2023 01/13/2021, 05/30/2020, 05/02/2020 Influenza Vaccine (Season Ended) 2024 12/24/19 21, 01/29/2020 Insurance [facility]O Address: [place] [address] [facility] Address: [address] [address] [place] [address] Care Teams Washcloth Folder Relationship Specialty Start Date End Date Pasquale Briggs MD [address] [facility] [address] [place] [address] PCP - General Internal Medicine 06/13/18
--- OUTSIDE RECORDS SUMMARY | 2024-09-18 14:04 | XMS_ITS | Clinical Summary ---
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 Gender Identity Not on file Sexual Orientation Not on file Plan of Treatment Health Maintenance Due Date Last Done Comments Colorectal Cancer Screening Colonoscopy (10 Years) 1950 Hepatitis C 12/05/1969 DTaP, Tdap and Td Vaccines ( 1 - Tdap) 12/05/1970 Pneumococcal Vaccine: 50+ Ye ars (1 of 1 - PCV) 12/05/2001 Zoster Vaccines (1 of 2) 12/05/2001 COVID-19 Vaccine ( - 2023-2 5 season) 2023 RSV Immunization or 60+ Years (1 - 1-dose 75+ series) 12/05/2026 Meningococcal B Vaccine Aged Out No l onger eligible based on patient's age to complete this topic Meningococcal Vaccine Aged Out No андрей roger eligible based on patient's age to complete this topic RSV Immunizations Under 20 Months Aged Out No longer eligible based on patient's age to complete this topic
--- OUTSIDE RECORDS SUMMARY | 2024-09-18 14:04 | XMS_ITS | Clinical Summary ---
Author Organization [facility] Care Team Providers Care Radio Journalist Name Role Phone Unavailable Primary Care Provider Unavailabl e Social History Tobacco Use Types Packs/Day Years Used Date Smoking Tobacco: Never Assessed Sex and Gender Information Value Date Recorded Sex Assigned at Not on file Legal Sex Male 2:37 PM FITNESS CLUB MANAGER Gender Identity Not on file Sexual Orientation Not on file Plan of Treatment Health Maintenance Due Date Last Done Comments Hepatitis C Virus (HCV) Screening 1950 TdaP Immunization 1950 Colonoscopy 12/05/1996 Colorectal Cancer Screening 12/05/1996 Cologuard 12/05/2001 Immunochemical Fecal Occult Blood 12/05/2001 Pneumococcal Immunization (5 0+ years) (1 of 1 - PCV) 12/05/2001 Zoster Immunization (1 of 2) 12/05/2001 Influenza Immunization (#1) 11/13/202312/12, 01/29/2020 SARS-COV-2 Immunization ( - 2023- season) 2023 01/13/2021, 05/30/2020, 05/02/2020 Respiratory Syncytial Virus (RSV) Immunization (Adult) (1 - 1-dose 75+ series) 12/05/2026 Hepatitis B Immunization Aged Out No longer eligible based on patient's age to complete this topic Meningococcal Immunization (ACWY) Aged Out No longer eligible b ased on patient's age to complete this topic Rotavirus Immunization Aged Out No lo nger eligible based on patient's age to complete this topic
--- OUTSIDE RECORDS SUMMARY | 2024-09-18 14:04 | XMS_ITS | Referral Summary ---
Author Organization [facility] Care Team Providers Care Licensed Sales Producer Name Role Phone Pasquale Briggs MD Primary Care Provider [phone] Medications No known medications Active Problems No known active problems Social History Tobacco Use Types Packs/Day Years Used Date Smoking Tobacco: Never Assessed Sex and Gender Information Value Date Recorded Sex Assigned at Not on file Legal Sex Male 1:15 PM ADMINISTRATION PHYSICIAN Gender Identity Not on file Sexual Orientation Not on file Last Filed Vital Signs Vital Sign Reading Time Taken Comments Blood Pressure 130/80 04/24/2018 2:00 PM ADMINISTRATION PHYSICIAN Pulse 74 04/24/2018 2:00 PM ADMINISTRATION PHYSICIAN Temperature 36.7 C (98 F) 09/15/2012 12:01 PM CDT Respiratory Rate - - Oxygen Saturation 93% 09/15/2012 12:01 PM CDT Inhaled Oxygen Concentration - - Weight 93 kg (205 lb) 04/24/2018 2:00 PM ADMINISTRATION PHYSICIAN Height 177.8 cm (5' 10) 04/24/2018 2:00 PM ADMINISTRATION PHYSICIAN Body Mass Index 29.41 04/24/2018 2:00 PM ADMINISTRATION PHYSICIAN Plan of Treatment Not on file Insurance [facility] [employer] [facility] Address: [place] [address] [facility] Address: [place] [address] Care Teams Licensed Sales Producer Relationship Specialty Start Date End Date Pasquale Briggs MD [address] [facility] [address] [place], [place] [id number] PCP - General Internal Medicine 06/13/18
--- OUTSIDE RECORDS SUMMARY | 2024-09-18 14:04 | XMS_ITS | Encounter Summary ---
Author Organization [facility] Care Team Providers Care Governor Assembler Name Role Phone Pasquale Briggs MD Primary Care Provider [phone] Encounter Details Date Type Department Care Team (Latest Contact Info) Description 04/24/2018 Orders Only [facility] ProviderMamta MD [address] [place] [id number] Social History Tobacco Use Types Packs/Day Years Used Date Smoking Tobacco: Never Assessed Sex and Gender Information Value Date Recorded Sex Assigned at Not on file Legal Sex Male 1:15 PM DIETETIC TECH Gender Identity Not on file Sexual Orientation Not on file documented as of this encounter Plan of Treatment Not on file documented as of this encounter Procedures Procedure Name Priority Date/Time Associated Diagnosis Comments AUDIOLOGY RECORD 04/24/2018 12:0 0 AM DIETETIC TECH documented in this encounter Results * AUDIOLOGY RECORD (04/24/2018 12:00 AM DIETETIC TECH) Narrative 04/24/2018 12:00 AM DIETETIC TECH Ordered by an unspecified provider. Historical Provider NURSING COMMUNICATION Fin al Result documented in this encounter Visit Diagnoses Not on filedocumented in this encounter Care Teams Governor Assembler Relationship Specialty Start Date End Date Pasquale Briggs MD [address] [facility] [address] [place] [address] PCP - General Internal Medicine 06/13/18 documented as of this encounter
== END 2024-09-18 13:57 | disposition home or self-care (01) ==
PROVIDERS: PCP Internal Medicine; Visit Provider Nurse Practitioner Family
DX: R91.8 Other nonspecific abnormal finding of lung field (principal)
CPT/HCPCS: 78815; A9552

== ENCOUNTER 2025-02-04 06:37 | Outpatient (CLI) | payer OTHER, SELFPAY ==
--- OUTSIDE RECORDS SUMMARY | 2025-02-04 06:41 | XMS_ITS | Clinical Summary ---
Author Organization [facility] Address [address] [place] [address] Phone Care Team Providers Care Amusement Equipment Operator Name Role Phone Unavailable Primary Care Provider Unavailabl e Encounters Date Type Department Care Team Description 01/01/2025 External Device Data ST[facility] ABSTRACTION Provider, Abstract 12/19/2024 Abstract [facility] [address] [facility] [address] [place] [address] Ankur Roca MD 12/18/2024 External Device Data [facility] ABSTRACTION Provider, Abstract 12/18/2024 External Device Data [facility] ABSTRACTION Provider, Abstract 12/18/2024 External Device Data [facility] ABSTRACTION Provider, Abstract 12/13/2024 Telephone [facility] [address] [place] [address] Ankur Roca MD Referral from Last 3 Months Social History Tobacco Use Types Packs/Day Years Used Date Smoking Tobacco: Never Assessed Sex and Gender Information Value Date Recorded Sex Assigned at Not on file Legal Sex Male 2:11 PM CDT Gender Identity Not on file Sexual Orientation Not on file Plan of Treatment Health Maintenance Due Date Last Done Comments DTAP/TDAP/TD VACCINES (1 - Tdap) 12/05/1970 COLORECTAL SCREENING 12/05/1996 Colorectal Cancer Screening 12/05/1996 FIT-DNA Q 3 years 12/05/1996 FIT/FOBT Q 1 year 12/05/1996 Flex Sig/CT Colonography Q 5 years 12/05/1996 PNEUMOCOCCAL VACCINE 50+ YEARS (1 of 1 - PCV) 12/06/19 02 ZOSTER VACCINE (1 of 2) 12/05/2001 INFLUENZA VACCINE (#1) 2024 RSV VACCINE (60+ or ) (1 - 1-dose 75+ series) 12/05/2026
--- OUTSIDE RECORDS SUMMARY | 2025-02-04 06:41 | XMS_ITS ---
Author Organization [facility] Care Team Providers Care Staff Nurse Midwife Name Role Phone Pasquale Briggs MD Primary Care Provider [phone] Yvon Stanford MD Unavailable Active Problems Patient Care Coordination No te Formatting of this note migh t be different from the original. Referring provider: Dr. Pasquale Briggs Mr. Stone Contreras is a 73-year-old with a lung nodule. On 09/03/2024 the patient underwent a lung cancer screening CT scan which showed advanced emphysema with biapical scarring. There were numerous calcified granulomas present. There was a 12 mm nodule in the left upper lobe. There was a 1.3 cm nodule in the superior segment of the left lower lobe. There was a 5 mm nodule in the right upper lobe. There was calcified mediastinal and hilar lymph nodes. On 09/18/2024 the patient underwent a PET scan which demonstrated prominent increased uptake associated with a 1.4 cm right lower lobe? and 1.2 cm left upper lobe lung nodule there were no other lesions suspicious for primary malignancy or metastatic disease. On 10/09/2024 the patient underwent pulmonary function testing which showed an FEV1 of 39% of predicted and a DLCO of 47% of predicted. Patient is a former smoker. Patient is getting scheduled for pulmonary function testing. Patient presents today for further surgical evaluation. Problem Noted Date Diagnosed Date Malignant neoplasm of upper lobe of left lung Cancer Staging:Clinical stage from 09/18/2024:Stage IA2(cT1b, cN0, cM0) - Unsigned Malignant neoplasm of lower lobe of left lung Cancer Staging:Clinical stage from 09/18/2024:Stage IA2(cT1b, cN0, cM0) - Unsigned Nodule of lower lobe of left lung 10/09/2024 Current Treatment and Therapy Plans No current plan information found. Past Treatment and Therapy Plans No past plan information found. Current Radiation Episodes * Radiation Oncology - Radiation Therapy - September 2024Overview* First Treatment Date Latest Treatment Date Treatment Site Technique Goal Episode Provider 11/06/2024 11/13/2024 Treatment Courses* Course [id number]_[id number]_202411/06/2024 - 11/13/2024 Treatment Period Fraction Dose Fractions Total Dose Plans Planned SBRT LLL 11/06/2024 - 11/13/2024 1,100 5 / 5 ,500 SBRT ANGELICA 11/06/2024 - 11/13/2024 1,100 5 / 5 ,500 Reference Points Delivered SBRT [id number] 11/06/2024 - 11/13/2024 5,500 SBRT [id number] 11/06/2024 - 11/13/2024 5,500
--- OUTSIDE RECORDS SUMMARY | 2025-02-04 06:41 | XMS_ITS | Clinical Summary ---
Author Organization [facility] Healthcare [facility] Care Team Providers Care Floor Finisher Helper Name Role Phone Pasquale Briggs MD Primary Care Provider Yvon Stanford MD Unavailable Allergies No known active allergies Medications calcium carbonate-vitam in D3 2,500 mg (1,000 mg elemental)-800 unit tablet Active atorvastatin (LIPITOR) 10 mg tablet Take 1 tablet (10 mg total) by mouth daily 07/29/2024 Active carvediloL (COREG) 6.25 mg tablet 10/25/2022 Active valsartan (DIOVAN) 320 mg tablet 09/07/2024 Active prednisoLONE acetate (PRED FORTE) 1 % ophthalmic suspension INSTILL 1 DROP INTO BOTH EYES FOUR TIMES DAILY. SHAKE WELL BEFORE USING 09/03/2024 Active omega 0-rej-ecn-fish oil (Fish OiL) 1,200 (144-216) mg capsule Active insulin lispro (HUMALOG KWIKPEN INSULIN SUBQ) Active metFORMIN (GLUCOPHAGE) 1,000 mg tablet 09/03/2024 Act ibeth hydroCHLOROthia zide 12.5 mg tablet Active Trelegy Ellipta 100-62.5-25 mcg inhaler 07/27/2024 Active albuterol HFA (PROVENTIL HFA,VENTOLIN HFA,PROAIR HFA) 90 mcg/actuation inhaler 10/10/2024 Active acetaminophen ER (Tylenol Arthritis Pain) 650 mg 8 hr tablet Active cyanocobalamin, vitamin B-12, (Vitamin B-12) 1,000 mcg/mL drops Active Active Problems Patient Care Coordination No te [...] of lower lobe of left lung 10/09/2024 Encounters Date Type Department Care Team Description 11/27/2024 Orders Only [facility] Radiation Oncology [address] [place] [address] Yvon Stanford MD Malignant neoplasm of upper lobe of left lung (HCC) (Primary Dx) 11/13/2024 1:24 PM CDT - 11/13/2024 11:59 PM CDT Hospital Encounter [facility] Radiation Oncology [address] [facility] [place] [address] Yvon Stanford MD Discharge Disposition: Discharge to home or self care 11/13/2024 Completion of Therapy [facility] Radiation Oncology [address] [facility] [place] [address] Michelle Sheriff NP 11/13/2024 Orders Only RAD ONC TREATMENTS Miscellaneous, Not In File 11/09/2024 12:48 PM CDT - 11/09/2024 11:59 PM CDT Hospital Encounter [facility] Radiation Oncology [address] [place] [address] Yvon Stanford MD Discharge Disposition: Discharge to home or self care 11/09/2024 Orders Only RAD ONC TREATMENTS Miscellaneous, Not In File 11/08/2024 1:38 PM CDT - 11/08/2024 11:59 PM CDT Hospital Encounter [facility] Radiation Oncology [address] [place] [address] Yvon Stanford MD Discharge Disposition: Discharge to home or self care 11/08/2024 OTV [facility] Radiation Oncology [address] [place] [address] Yvon Stanford MD 11/08/2024 Orders Only RAD ONC TREATMENTS Miscellaneous, Not In File 11/07/2024 1:20 PM CDT - 11/07/2024 11:59 PM CDT Hospital Encounter [facility] Radiation Oncology [address] [place] [address] Yvon Stanford MD Discharge Disposition: Discharge to home or self care 11/07/2024 Orders Only RAD ONC TREATMENTS Miscellaneous, Not In File 11/06/2024 1:59 PM CDT - 11/06/2024 11:59 PM CDT Hospital Encounter [facility] Radiation Oncology [address] [place] [address] Yvon Stanford MD Discharge Disposition: Discharge to home or self care 11/06/2024 Orders Only RAD ONC TREATMENTS Miscellaneous, Not In File 11/05/2024 10:10 PM CDT - 11/05/2024 11:59 PM CDT Hospital Encounter 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[employer] Gender Identity Male 10/16/2024 12:01 PM CDT Sexual Orientation Straight 10/16/2024 12 :01 PM CDT Last Filed Vital Signs Vital Sign Reading Time Taken Comments Blood Pressure 198/87 10/11/2024 2:39 PM CDT Pulse 66 10/11/2024 2:39 PM CDT Temperature 36.2 C (97.2 F) 10/11/2024 2:39 PM CDT Respiratory Rate 18 10/11/2024 2:39 PM CDT Oxygen Saturation 93% 10/11/2024 2:39 PM CDT Inhaled Oxygen Concentration - - Weight 94.5 kg (208 lb 6.4 oz) 11/08/2024 2:48 P M CDT Height 177.8 cm (5' 10) 10/17/2024 1:55 PM CDT Body Mass Index 29.9 10/17/2024 1:55 PM CDT Plan of Treatment Health Maintenance Due Date Last Done Comments Colon Cancer Screening-Colonoscopy 1950 Depression Screening 1950 Hepatitis C Screening 1950 DTaP/Tdap/Td Vaccine (1 - Tdap) 12/05/1962 Hepatitis B Screening 12/05/1969 Pneumococcal vaccine 65+ (1 of 2 - PCV) 12/05/1970 Abdominal Aortic Aneurysm (A AA) Screen 12/05/2016 Well Visit 65+ 12/05/2016 Zoster Vaccine (2 of 2) 05/11/2023 03/16/2023 Covid-19 Vaccine (4 - season) 2024 01/13/2021, 05/30/2020, 05/02/2020 Influenza Vaccine (#1) 2024 2, 12/23/2020, 01/29/2020 Fall Risk Assessment 10/17/2025 10/17/2024 Procedures Procedure Name Priority Date/Time Associated Diagnosis Comments RAD ONC ARIA SESSION SUMMARY 11/13/2024 2:08 PM CDT RAD ONC ARIA SESSION SUMMARY 11/09/2024 1:26 PM CDT RAD ONC ARIA SESSION SUMMARY 11/08/2024 2:22 PM CDT RAD ONC ARIA SESSION SUMMARY 11/07/2024 1:59 PM CDT RAD ONC ARIA SESSION SUMMARY 11/06/2024 3:10 PM CDT from Last 3 Months Results * RAD ONC ARIA SESSION SUMMARY (11/13/2024 2:08 PM CDT) Course Name C1_L_Lung_ 2024 ARIA Course Plan Date 10/25/2024 2:21 PM ARIA Elapsed Days 7 ARIA Treatment Start Date 11/06/2024 ARIA Treatment Site SBRT [id number] ARIA Dose Given To Date (cGy) 5,500 ARIA Session Dosage Given (cGy) 1,100 ARIA Treatment Site SBRT [id number] ARIA Dose Given To Date (cGy) 5,500 ARIA Session Dosage Given (cGy) 1,100 ARIA Plan ID SBRT LLL ARIA Fractions Treated 5 ARIA Prescribed Dose Per Fraction (cGy) 1,100 ARIA Prescribed Total Dose (cGy) 5,500 ARIA Plan ID SBRT ANGELICA ARIA Fractions Treated 5 ARIA Prescribed Dose Per Fraction (cGy) 1,100 ARIA Prescribed Total Dose (cGy) 5,500 ARIA 11/13/2024 2:08 PM CDT us Not In File Miscellaneous RADIATION ONCOLOGY ORD ERABLES Final Result ARIAshly * RAD ONC ARIA SESSION SUMMARY (11/09/2024 1:26 PM CDT) Course Name C1_L_Lung_ 2024 ARIA Course Plan Date 10/25/2024 2:21 PM ARIA Elapsed Days 3 ARIA Treatment Start Date 11/06/2024 ARIA Treatment Site SBRT [id number] ARIA Dose Given To Date (cGy) 4,400 ARIA Session Dosage Given (cGy) 1,100 ARIA Treatment Site SBRT [id number] ARIA Dose Given To Date (cGy) 4,400 ARIA Session Dosage Given (cGy) 1,100 ARIA Plan ID SBRT LLL ARIA Fractions Treated 4 ARIA Prescribed Dose Per Fraction (cGy) 1,100 ARIA Prescribed Total Dose (cGy) 5,500 ARIA Plan ID SBRT ANGELICA ARIA Fractions Treated 4 ARIA Prescribed Dose Per Fraction (cGy) 1,100 ARIA Prescribed Total Dose (cGy) 5,500 ARIA 11/09/2024 1:26 PM CDT us Not In File Miscellaneous RADIATION ONCOLOGY ORD ERABLES Final Result ARIAshly * RAD ONC ARIA SESSION SUMMARY (11/08/2024 2:22 PM CDT) Course Name C1_L_Lung_ 2024 ARIA Course Plan Date 10/25/2024 2:21 PM ARIA Elapsed Days 2 ARIA Treatment Start Date 11/06/2024 ARIA Treatment Site SBRT [id number] ARIA Dose Given To Date (cGy) 3,300 ARIA Session Dosage Given (cGy) 1,100 ARIA Treatment Site SBRT [id number] ARIA Dose Given To Date (cGy) 3,300 ARIA Session Dosage Given (cGy) 1,100 ARIA Plan ID SBRT LLL ARIA Fractions Treated 3 ARIA Prescribed Dose Per Fraction (cGy) 1,100 ARIA Prescribed Total Dose (cGy) 5,500 ARIA Plan ID SBRT ANGELICA ARIA Fractions Treated 3 ARIA Prescribed Dose Per Fraction (cGy) 1,100 ARIA Prescribed Total Dose (cGy) 5,500 ARIA 11/08/2024 2:22 PM CDT us Not In File Miscellaneous RADIATION ONCOLOGY ORD ERABLES Final Result ARIA * RAD ONC ARIA SESSION SUMMARY (11/07/2024 1:59 PM CDT) Course Name C1_L_Lung_ 2024 ARIA Course Plan Date 10/25/2024 2:21 PM ARIA Elapsed Days 1 ARIA Treatment Start Date 11/06/2024 ARIA Treatment Site SBRT [id number] ARIA Dose Given To Date (cGy) 2,200 ARIA Session Dosage Given (cGy) 1,100 ARIA Treatment Site SBRT [id number] ARIA Dose Given To Date (cGy) 2,200 ARIA Session Dosage Given (cGy) 1,100 ARIA Plan ID SBRT LLL ARIA Fractions Treated 2 ARIA Prescribed Dose Per Fraction (cGy) 1,100 ARIA Prescribed Total Dose (cGy) 5,500 ARIA Plan ID SBRT ANGELICA ARIA Fractions Treated 2 ARIA Prescribed Dose Per Fraction (cGy) 1,100 ARIA Prescribed Total Dose (cGy) 5,500 ARIA 11/07/2024 1:59 PM CDT us Not In File Miscellaneous RADIATION ONCOLOGY ORD ERABLES Final Result ARIA * RAD ONC ARIA SESSION SUMMARY (11/06/2024 3:10 PM CDT) Course Name C1_L_Lung_ 2024 ARIA Course Plan Date 10/25/2024 2:21 PM ARIA Elapsed Days 0 ARIA Treatment Start Date 11/06/2024 ARIA Treatment Site SBRT [id number] ARIA Dose Given To Date (cGy) 1,100 ARIA Session Dosage Given (cGy) 1,100 ARIA Treatment Site SBRT [id number] ARIA Dose Given To Date (cGy) 1,100 ARIA Session Dosage Given (cGy) 1,100 ARIA Plan ID SBRT LLL ARIA Fractions Treated 1 ARIA Prescribed Dose Per Fraction (cGy) 1,100 ARIA Prescribed Total Dose (cGy) 5,500 ARIA Plan ID SBRT ANGELICA ARIA Fractions Treated 1 ARIA Prescribed Dose Per Fraction (cGy) 1,100 ARIA Prescribed Total Dose (cGy) 5,500 ARIA 11/06/2024 3:10 PM CDT us Not In File Miscellaneous RADIATION ONCOLOGY ORD ERABLES Final Result ARIA from Last 3 Months Insurance [facility] Address: [place] [address] [employer] [facility] [employer] [facility] Address: [place] [id number] [facility] [employer] [facility] [employer] Address: [address] [address] [place] [address] MEDICARE Care Teams Floor Finisher Helper Relationship Specialty Start Date End Date Pasquale Briggs MD PCP - General Internal Medicine 06/13/18 Yvon Stanford MD [address] [facility] [address] [place] [address] Radiation Oncologist Radiation Oncology 11/19/24
--- OUTSIDE RECORDS SUMMARY | 2025-02-04 06:41 | XMS_ITS | Encounter Summary ---
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 us Historical Provider NURSING COMMUNICATION Fin al Result documented in this encounter Visit Diagnoses Not on filedocumented in this encounter Care Teams Stripper And Printer Relationship Specialty Start Date End Date Pasquale Briggs MD PCP - General Internal Medicine 06/13/18 Yvon Stanfrod MD [address] [facility] [address] [place] [address] Radiation Oncologist Radiation Oncology 11/19/24 documented as of this encounter
--- OUTSIDE RECORDS SUMMARY | 2025-02-04 06:41 | XMS_ITS | Clinical Summary ---
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 Gender Identity Not on file Sexual Orientation Not on file Plan of Treatment Health Maintenance Due Date Last Done Comments Colorectal Cancer Screening Colonoscopy (10 Years) 1950 Hepatitis C 12/05/1969 DTaP, Tdap and Td Vaccines ( 1 - Tdap) 12/05/1970 Pneumococcal Vaccine: 50+ Ye ars (1 of 1 - PCV) 12/05/2001 Zoster Vaccines (1 of 2) 12/05/2001 COVID-19 Vaccine ( - 2024-2 6 season) 2024 Influenza Adult (#1) 2024 RSV Immunization or 60+ Years (1 - 1-dose 75+ series) 12/05/2026 Hepatitis A Vaccines Aged Out No long er eligible based on patient's age to complete this topic Meningococcal B Vaccine Aged Out No l onger eligible based on patient's age to complete this topic Meningococcal Vaccine Aged Out No андрей roger eligible based on patient's age to complete this topic RSV Immunizations Under 20 Months Aged Out No longer eligible based on patient's age to complete this topic
--- OUTSIDE RECORDS SUMMARY | 2025-02-04 06:41 | XMS_ITS | Clinical Summary ---
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 Gender Identity Not on file Sexual Orientation Not on file Plan of Treatment Health Maintenance Due Date Last Done Comments Hepatitis C Virus (HCV) Screening 1950 TdaP Immunization 1950 Cologuard 12/05/1996 Colonoscopy 12/05/1996 Colorectal Cancer Screening 12/05/1996 Immunochemical Fecal Occult Blood 12/05/1996 Pneumococcal Immunization (5 0+ years) (1 of 1 - PCV) 12/05/2001 Zoster Immunization (1 of 2) 12/05/2001 Influenza Immunization (#1) 11/12/202412/12, 01/29/2020 SARS-COV-2 Immunization (4 - 2024- season) 2024 01/13/2021, 05/30/2020, 05/02/2020 Respiratory Syncytial Virus (RSV) Immunization (Adult) (1 - 1-dose 75+ series) 12/05/2026 Hepatitis B Immunization Aged Out No longer eligible based on patient's age to complete this topic Human Papillomavirus (HPV) Immunization Aged Out No longer eligible b ased on patient's age to complete this topic Meningococcal Immunization (ACWY) Aged Out No longer eligible b ased on patient's age to complete this topic Rotavirus Immunization Aged Out No lo nger eligible based on patient's age to complete this topic
[2025-02-04 08:37] LABS: Hematocrit 46.9 % (42.0-52.0); Hemoglobin 15.2 g/dL (14.0-18.0); Immature Granulocyte Percent A 0.3 % (0-0.5); Lymphocytes Absolute Auto 1.30 K/mm3 (0.9-3.2); Mean Corpuscular HGB Conc 32.4 g/dl (32-36); Mean Corpuscular Hemoglobin 31.0 pg (26-34); Mean Corpuscular Volume 95.7 fl (80-100); Nucleated Red Blood Cells Absolute Auto 0.000 K/mm3 (0.0-0.012); Nucleated Red Blood Cells Perc 0.0 % (0.0-0.2); Platelet Count Result 228 k/mm3 (150-375); Red Blood Count 4.90 M/mm3 (4.6-6.20); White Blood Count 9.1 K/mm3 (4.5-10.0)
[2025-02-04 09:03] LABS: Alanine Aminotransferase 18 U/L (6-50); Albumin Level 4.2 g/dL (3.5-5.1); Alkaline Phosphatase 59 U/L (38-126); Anion Gap 5 mmol/L (4-12); Aspartate Amino Transferase 22 U/L (17-59); Bilirubin,Total 0.5 mg/dL (0.2-1.3); Blood Urea Nitrogen 19 mg/dL (9-20); Calcium 9.2 mg/dL (8.4-10.2); Carbon Dioxide 34 mmol/L (22-30); Chloride 101 mmol/L (98-107); Cholesterol 127 mg/dL (0-200); Estimated Glomerular Filt Rate > 60; Glucose 55 mg/dL (65-110); HDL Direct 50 mg/dL; Potassium 3.5 mmol/L (3.4-5.0); Sodium 140 mmol/L (137-145); Total Protein 7.0 g/dL (6.3-8.2); Triglycerides 118 mg/dL (<150)
[2025-02-04 09:17] LABS: Free T4 Free Thyroxine 1.00 ng/dL (0.78-2.19)
[2025-02-04 09:33] LABS: Prostate Specific Antigen 1.2 ng/mL (< OR = 4.0)
[2025-02-04 09:36] LABS: MALB Creatinine Ratio 705.4 mg/g (0-30)
[2025-02-04 10:53] LABS: Hemoglobin A1C 6.9 % (<5.7)
== END 2025-02-04 06:38 | disposition home or self-care (01) ==
LOC: ANHLAB 06:38
PROVIDERS: PCP Internal Medicine; Visit Provider Internal Medicine
DX: E11.9 Type 2 diabetes mellitus without complications (principal); I10 Essential (primary) hypertension; E78.2 Mixed hyperlipidemia; E55.9 Vitamin D deficiency, unspecified; Z79.4 Long term (current) use of insulin; Z79.899 Other long term (current) drug therapy; Z12.5 Encounter for screening for malignant neoplasm of prostate; Z13.29 Encounter for screening for other suspected endocrine disorder
CPT/HCPCS: 36415; 80053; 80061; 82043; 82306; 83036; 84153; 84439; 85025; G0103